=== PATIENT | female | born 1955 | race Caucasian/White ===

== ENCOUNTER 2020-05-30 08:51 | Emergency (ER) | payer MEDICARE, SELFPAY ==
[2020-05-30] VITALS (36 sets, daily range): BP systolic 120–158; BP diastolic 65–108; PULSE 60–74; RESP 13–21; TEMP 35.7; O2SAT 94–100
--- NOTE | ~2020-05-30 | XR_ITS ---
EXAMINATION: XR shoulder RT min 2V EXAM DATE: 05/30/2020 10:14 INDICATION: Initial encounter following injury, with pain of the right shoulder. TECHNIQUE: The following right shoulder projections obtained: frontal projection with internal rotati on, frontal projection with external rotation, Grashey, and scapular Y view (4+ views). Comparison is made to prior examination from 02/01/2016. FINDINGS: No evidence of right shoulder rotator cuff calcific tendinosis. Unremarkable right gretchen ohumeral and acromioclavicular joints. Mild right shoulder osteoarthritis. There are no acute fractur es or dislocations identified. There is no subcutaneous gas. The soft tissue is unremarkable. The re are no radiopaque foreign bodies. IMPRESSION: 1. Right shoulder exam without acute osseous findings. Reviewed, dictated and finalized at location A. ERCIAL TIRE SERVICE TECHNICIAN
--- NOTE | ~2020-05-30 | CT_ITS ---
EXAMINATION: CT brain wo con DATE: 05/30/2020 09:49 INDICATION: Dizziness. TECHNIQUE: Computed tomography (CT) of the head was performed without intravenous contrast. The mA wa s adjusted according to patient size. Iterative reconstruction technique was employed. The dose-lengt h product was 605.33 mGy-cm. COMPARISON: Head CT 08/22/18 FINDINGS: There is no intracranial hemorrhage, acute infarction, or abnormal intracranial mass lesion . The ventricles are normal in size. There is mild mucosal thickening in the ethmoid sinuses. The mas toid air cells are normal. IMPRESSION: 1. Normal brain. Reviewed, dictated and finalized at location B. RAL GAS PLANT SUPERVISOR IMPRESSION: 1. Normal brain.
--- NOTE | ~2020-05-30 | CT_ITS ---
EXAMINATION: CT cervical spine wo con DATE: 05/30/2020 09:49 INDICATION: Neck injury. TECHNIQUE: Computed tomography (CT) of the cervical spine was performed without intravenous contrast. Automated exposure control and iterative reconstruction technique were employed. The dose-length pro duct was 493.57 mGy-cm. COMPARISON: CT cervical spine 07/14/2013 FINDINGS: There is 2 mm anterolisthesis of C2 on C3 and C3 on C4. Vertebral body heights are normal. There is moderately decreased disc height at C3-C4 and severely decreased disc height from C4-C5 thro ugh C6-C7. The following disc levels are specifically discussed: C2-C3: There is mild bilateral uncovertebral joint osteoarthritis. There is severe right and moderate left facet joint osteoarthritis. There is mild right neural foraminal stenosis. There is no central canal stenosis. C3-C4: There is mild right and severe left uncovertebral joint osteoarthritis. There is severe bilate ral facet joint osteoarthritis. There is moderate bilateral neural foraminal stenosis. There is mild central canal stenosis. C4-C5: There is severe bilateral uncovertebral joint osteoarthritis. There is severe bilateral facet joint osteoarthritis. There is severe right and moderate left neural foraminal stenosis. There is mil d central canal stenosis. C5-C6: There is severe bilateral uncovertebral joint osteoarthritis. There is moderate bilateral face t joint osteoarthritis. There is moderate bilateral neural foraminal stenosis. There is mild central canal stenosis. C6-C7: There is severe bilateral uncovertebral joint osteoarthritis. There is moderate right and mild left facet joint osteoarthritis. There is mild bilateral neural foraminal stenosis. There is mild ce ntral canal stenosis. C7-T1: There is no uncovertebral joint osteoarthritis. There is severe bilateral facet joint osteoart hritis. There is mild bilateral neural foraminal stenosis. There is no central canal stenosis. IMPRESSION: 1. No fracture. 2. Severe cervical spondylosis. Reviewed, dictated and finalized at location B. FLIGHT ATTENDANT
--- NOTE | ~2020-05-30 | CT_ITS ---
EXAMINATION: CT lumbar spine wo con DATE: 05/30/2020 09:49 INDICATION: Low back injury. TECHNIQUE: Computed tomography (CT) of the lumbar spine was performed without intravenous contrast. A utomated exposure control and iterative reconstruction technique were employed. The dose-length produ ct was 1248.20 mGy-cm. COMPARISON: None FINDINGS: There is 21 degrees dextroscoliosis of lumbar spine. There are chronic bilateral L5 pars de fects. There is 8 mm anterolisthesis of L5 on S1. There is mild chronic height loss of L5 vertebral b oneyda posteriorly. There is mild chronic anterior wedging of T12 vertebral body. There is severely decr eased disc height from L1-L2 through L5-S1. The following disc levels are specifically discussed: L1-L2: The disc is bulging. There is severe bilateral facet joint osteoarthritis. There is moderate b ilateral neural foraminal stenosis. There is mild central canal stenosis. L2-L3: The disc is bulging. There is severe bilateral facet joint osteoarthritis. There is moderate b ilateral neural foraminal stenosis. There is mild central canal stenosis. L3-L4: The disc is bulging. There is severe bilateral facet joint osteoarthritis. There is moderate b ilateral neural foraminal stenosis. There is mild central canal stenosis. L4-L5: The disc is bulging. There is severe bilateral facet joint osteoarthritis. There is moderate b ilateral neural foraminal stenosis. There is mild central canal stenosis. L5-S1: The disc is bulging. There is severe bilateral facet joint osteoarthritis. There is mild bilat eral neural foraminal stenosis. There is no central canal stenosis. IMPRESSION: 1. No acute fracture. 2. Severe lumbar spondylosis. 3. Chronic bilateral L5 pars defects with grade 1 anterolisthesis of L5 on S1. 4. Lumbar dextroscoliosis. Reviewed, dictated and finalized at location B. ATE CLIENT ADVISOR
--- NOTE | ~2020-05-30 | XR_ITS ---
EXAMINATION: XR chest 2V EXAM DATE: 05/30/2020 10:14 INDICATION: Fall, dizziness, syncope. Asthma. Colon cancer. TECHNIQUE: Frontal and lateral projections of the chest obtained and reviewed. Comparison is made to prior examination from 01/19/2018. FINDINGS: There is a dual lead pacemaker/AICD seen with leads projecting over the expected locations of the right atrial appendage and right ventricle. No confluent consolidation, pneumothorax or pleu ral effusion suspected. Cardiomediastinal silhouette is normal. There are mild bony degenerative head ges. IMPRESSION: No acute cardiopulmonary findings. Reviewed, dictated and finalized at location A. ICATIONS PROCESSOR
--- NOTE | ~2020-05-30 | XR_ITS ---
EXAMINATION: XR shoulder LT min 2V EXAM DATE: 05/30/2020 10:14 INDICATION: Initial encounter following injury, with pain of the left shoulder. TECHNIQUE: The following left shoulder projections obtained: frontal projection with internal rotatio n, frontal projection with external rotation, Grashey, and scapular Y view (4+ views). There is no p rior study for comparison. FINDINGS: No evidence of left shoulder rotator cuff calcific tendinosis. Proximal humeral metaphy sis enchondroma, benign finding. There are no acute fractures or dislocations identified. There is n o subcutaneous gas. The soft tissue is unremarkable. There are no radiopaque foreign bodies. Ther e is mild glenohumeral and acromioclavicular joint primary osteoarthritis. IMPRESSION: 1. Left shoulder exam without acute osseous findings. Reviewed, dictated and finalized at location A. EL TRUCK MECHANIC
--- NOTE | 2020-05-30 09:01 | ECG_ITS ---
Measurements Intervals [place] Rate: 61 P: -10 RI: 240 QRS: 6 QRSD: 109 T: -9 QT: 418 QTc: 423 Interpretive Statements ELECTRONIC ATRIAL PACEMAKER BORDERLINE ST-T WAVE ABNORMALITY- ANT/INF LEADS BASELINE ARTIFACT- I, II, III, AVR, AVL, AVF, V1-V6 BORDERLINE ECG Electronically Signed On 05-30-2020 14:39:07 COAT BASTER by Arden Palomares D.O.
--- NOTE | 2020-05-30 09:18 | PC.NURSE ---
pt pacemaker, interrogated by [employer] interrogator at this time.
[2020-05-30 09:28] LABS: Basophils Percent Auto 0.3 % (0.2-1.2); Eosinophils Percent Auto 0.1 % (0-4.4); Hematocrit 43.5 % (37.0-47.0); Hemoglobin 14.8 g/dL (12.0-15.0); Immature Granulocyte Absolute 0.06 K/mm3 (0.00-0.031); Immature Granulocyte Percent A 0.4 % (0-0.5); Lymphocytes Absolute Auto 0.87 K/mm3 (0.9-3.2); Lymphocytes Percent Auto 6.5 % (18.3-44.2); Mean Corpuscular Hemoglobin 29.5 pg (26-34); Mean Corpuscular Volume 86.7 fl (80-100); Mean Platelet Volume 9.4 fl (7.4-10.4); Monocytes Percent Auto 7.1 % (2.6-8.5); Neutrophils Absolute Auto 11.5 K/mm3 (1.3-6.7); Neutrophils Percent Auto 85.6 % (45.5-73.1); Platelet Count Result 222 k/mm3 (150-375); Red Blood Count 5.02 M/mm3 (4.2-5.4); Red Cell Distribution Width 13.1 % (11.5-14.5); White Blood Count 13.5 K/mm3 (4.5-10.0)
--- NOTE | 2020-05-30 09:30 | PC.NURSE ---
CT BRAIN PLACE ON PT, PA MARILIA AWARE.
--- NOTE | 2020-05-30 09:31 | PC.NURSE ---
pt to ct
[2020-05-30 09:39] LABS: Anion Gap 7 mmol/L (8-16); Blood Urea Nitrogen 15 mg/dL (7-17); Calcium 10.4 mg/dL (8.4-10.2); Carbon Dioxide 32 mmol/L (22-30); Chloride 90 mmol/L (98-107); Estimated CRCL calculation 116 ml/min; Estimated Glomerular Filt Rate > 60; Glucose 116 mg/dL (65-105); Potassium 3.1 mmol/L (3.4-5.0); Sodium 129 mmol/L (137-145)
[2020-05-30 09:48] LABS: Add Urine Microscopic? NO; Appearance Urine Clear (Clear); Bilirubin Urine Negative (Negative); Blood Urine Negative (Negative); Color Urine Yellow (Yellow); Glucose Urine UA Negative (Negative); Ketones Urine Negative (Negative); Leukocyte Esterase Ur Negative LEU/UL (Negative); Nitrate Urine Negative (Negative); Protein Urine Negative (Negative); Specific Grav Ur 1.015 (1.001-1.035); Urobilinogen Urine Negative mg/dL (<2.0)
[2020-05-30 10:24] LABS: Prothrombin Time 13.7 Seconds (11.1-14.7)
[2020-05-30] MEDS: SODIUM CHLORIDE 0.9% IV 1,000 ML 999 ML IV CONT ×2 (10:31→12:49)
--- NOTE | 2020-05-30 10:36 | ED.HEATRA ---
HPI - Head Injury General Chief complaint: Head Injury Stated complaint: FALL Time Seen by Provider: 05/30/20 09:05 Source: patient and family Mode of arrival: ambulatory Limitations: no limitations History of Present Illness HPI Narrative: Patient is a 65-year-old female who presents to emergency department for evaluation of injuries related to falling last night woke up in the middle of the night attempted to go upstairs to get into bed patient notes that she laid on the ground most of the night., Patient notes today she has had headache and neck pain and low back pain from the fall as well as left shoulder pain patient notes feeling weak and fatigued notes that she had felt fine yesterday and denies any acute or recent illness presents in no distress has not taken anything for her symptoms Related Data Home Medications Medication Instructions Recorded Confirmed Albuterol Inhaler 07/28/19 Zyrtec 07/28/19 aspirin 07/28/19 celecoxib [Celebrex] 200 mg PO BID 07/28/19 07/28/19 chlorthalidone 25 mg PO DAILY 07/28/19 07/28/19 fluticasone propionate [Flonase 2 spray INTRANASAL DAILY 07/28/19 07/28/19 Allergy Relief] gabapentin 1,200 mg PO TID 07/28/19 07/28/19 lovastatin 20 mg PO DAILY 07/28/19 07/28/19 mometasone [Asmanex HFA] INHALATION 07/28/19 potassium chloride 10 meq PO DAILY 07/28/19 07/28/19 ammonium lactate 1 applic TOPICAL BID 05/30/20 psyllium [Metamucil] 1 packet PO TID 05/30/20 Allergies Allergy/AdvReac Type Severity Reaction Status Date / Time adhesive Allergy Unknown Rash Verified 07/28/19 18:02 latex Allergy Unknown Rash Verified 07/28/19 18:02 morphine Allergy Unknown Nausea and Verified 07/28/19 18:02 Vomiting nickel Allergy Unknown Rash Verified 07/28/19 18:02 VINYL STRIPS Allergy Unknown RASH Uncoded 03/03/17 10:18 Review of Systems Review of Systems: All systems reviewed & are unremarkable except as noted in HPI and below PMFSH Past Medical History Medical History Asthma Bronchitis Colon cancer History of sinus problem Hyperlipidemia Neuropathy Osteoarthritis Pacemaker Pneumonia Surgical History Surgical History H/O: hysterectomy History of appendectomy History of cholecystectomy History of colon resection History of hip replacement, total History of placement of ear tubes History of tonsillectomy Family History Family History Mother Carcinoma of colon Family history of pancreatic disease Father Family history of malignant melanoma Family history of pancreatic disease Sibling Acute myocardial infarction Social History Social History Smoking status: Never smoker Alcohol intake: never Gender identity (if verbalized by the patient): Female Exam Narrative: Exam Narrative: GENERAL: Well-appearing, morbid obesity, and in no acute distress. HEAD: Normocephalic, atraumatic. EYES: PERRLA and EOMI. ENT: Nares clear, no rhinorrhea or epistaxis. Mucous membranes moist. NECK: Supple. No adenopathy or masses. CHEST: Clear to auscultation. No respiratory distress. No wheezes rales or rhonchi HEART: Regular rate and rhythm. No murmur heard. Normal peripheral pulses. ABDOMEN: Soft, nontender, nondistended EXTREMITIES: Normal range of motion. 1+ edema lower extremity. Midline cervical and lumbar tenderness no thoracic tenderness no bruising or deformities noted. Bruising and tenderness of the left proximal humerus at the level of the deltoid SKIN: Warm, dry, no rash. NEURO: No focal deficits. Alert and oriented x3. Cranial nerves II through XII grossly intact. Normal speech. Motor and sensory intact and symmetrical in the extremities PSYCH: Normal mood and affect. Course Course Emergency Course: Patient in the room at this time aware of
[2020-05-30 10:59] LABS: Creatine Kinase 233 U/L (30-135)
[2020-05-30 11:02] LABS: Troponin I < 0.012 ng/mL (0.000-0.034)
[2020-05-30 11:07] LABS: Alanine Aminotransferase 35 U/L (4-35); Albumin Level 4.4 g/dL (3.5-5.1); Alkaline Phosphatase 146 U/L (38-126); Aspartate Amino Transferase 65 U/L (14-36); Lipase 37 U/L (23-300)
--- NOTE | 2020-05-30 11:20 | PC.NURSE ---
called lab, added on MG 1120
[2020-05-30 11:34] LABS: Magnesium 1.9 mg/dL (1.6-2.3)
[2020-05-30] MEDS: POTASSIUM CHLORIDE 20 MEQ TABLET 40 MEQ PO (12:49)
--- NOTE | 2020-05-30 13:41 | PC.NURSE ---
AWAITING NORMAL SALINE BOLUS TO FINISH ON PT PRIOR TO D/C.
--- NOTE | 2020-05-30 15:16 | PC.NURSE ---
pt still finished her iv fluids, to be d/c after they infuse.
== END 2020-05-30 16:05 | disposition home or self-care (01) ==
PROVIDERS: Emergency Medicine Emergency Medical Services; Emergency Provider Emergency Medicine; PCP Family Medicine Adolescent Medicine
DX: S09.90XA Unspecified injury of head, initial encounter (principal); S16.1XXA Strain of muscle, fascia and tendon at neck level, initial encounter; S39.012A Strain of muscle, fascia and tendon of lower back, initial encounter; E87.6 Hypokalemia; S40.012A Contusion of left shoulder, initial encounter; J45.909 Unspecified asthma, uncomplicated; Z85.038 Personal history of other malignant neoplasm of large intestine; E78.5 Hyperlipidemia, unspecified; G62.9 Polyneuropathy, unspecified; M19.90 Unspecified osteoarthritis, unspecified site; Z95.0 Presence of cardiac pacemaker; Z90.49 Acquired absence of other specified parts of digestive tract; Z96.649 Presence of unspecified artificial hip joint; Z79.82 Long term (current) use of aspirin; M47.812 Spondylosis without myelopathy or radiculopathy, cervical region; M47.816 Spondylosis without myelopathy or radiculopathy, lumbar region; R94.31 Abnormal electrocardiogram [ECG] [EKG]; W10.9XXA Fall (on) (from) unspecified stairs and steps, initial encounter
CPT/HCPCS: 36415; 70450; 71046; 72125; 72131; 73030; 80048; 80076; 81003; 82550; 83605; 83690; 83735; 84484; 85025; 85610; 85730; 93005; 96361; 96365; 99284; A9270; J0131; J7030

== ENCOUNTER 2021-10-10 15:00 | Emergency (ER) | payer MEDICARE, SELFPAY ==
[2021-10-10 15:13] VITALS: BP 134/88; PULSE 87; RESP 16; TEMP 36.6; O2SAT 99
--- NOTE | 2021-10-10 15:46 | ED.EAR ---
HPI - Ear Problem General Chief complaint: Ear Stated complaint: Ear pain Time Seen by Provider: 10/10/21 15:35 Source: patient, family, RN notes reviewed and old records reviewed Mode of arrival: ambulatory Limitations: no limitations History of Present Illness HPI Narrative: 66 year old female accompanied by spouse presents to express care with complaints of bilateral ear problems since last night with muffled hearing. Patient reports that she had right ear pain and muffled hearing to her right ear last night with pain gone to right ear but muffled hearing continues. She has pain to her left ear with some bloody drainage noted with ear canal red and excoriated. Patient also has yellowish drainage noted at TM of left ear with decreased hearing.Patient states that she has some nasal drainage and uses Flonase daily and usually has to take sinus medication with weather changes this time of year. Patient denies any cough or any chest congestion or any expectoration of mucous. MD Complaint: ear pain, ear discharge and decreased hearing Location: bilateral Duration: constant Relieving factors: nothing and ear drops (right ear) Discharge from ear: Reports yes - bloody Associated symptoms ear: decreased hearing, external ear tenderness, ear swelling and rhinorrhea Treatment prior to arrival: eardrops Related Data Home Medications Medication Instructions Recorded Confirmed Zyrtec 10 mg DIRECTED 07/28/19 10/10/21 aspirin 81 mg DIRECTED 07/28/19 10/10/21 celecoxib [Celebrex] 200 mg PO BID 07/28/19 10/10/21 chlorthalidone 25 mg PO DAILY 07/28/19 10/10/21 fluticasone propionate [Flonase 2 spray INTRANASAL DAILY 07/28/19 10/10/21 Allergy Relief] gabapentin 1,200 mg PO TID 07/28/19 10/10/21 ammonium lactate 1 applic TOPICAL BID 05/30/20 10/10/21 artifi.tears(hypromellose)(PF) 0.3 1 drp EACH EYE BID PRN 10/28/20 10/10/21 % eye drops atorvastatin 20 mg tablet 20 mg PO DAILY 10/28/20 10/10/21 ondansetron HCl 8 mg tablet 8 mg PO Q12H 10/28/20 10/10/21 psyllium seed (sugar) oral powder 1 tbsp PO DAILY 10/28/20 10/10/21 tavaborole 5 % topical solution 1 applic TOPICAL DAILY 10/28/20 10/10/21 with applicator fluticasone propionate [Flovent 110 mcg INHALATION DIRECTED 10/10/21 10/10/21 HFA] oxybutynin chloride 10 mg PO DIRECTED 10/10/21 10/10/21 Allergies Allergy/AdvReac Type Severity Reaction Status Date / Time adhesive Allergy Unknown Rash Verified 11/18/20 11:13 latex Allergy Unknown Rash Verified 11/18/20 11:13 morphine Allergy Unknown Nausea and Verified 11/18/20 11:13 Vomiting nickel Allergy Unknown Rash Verified 11/18/20 11:13 VINYL STRIPS Allergy Unknown RASH Uncoded 10/28/20 11:05 Review of Systems Review of Systems: CONSTITUTIONAL: Denies fever, chills, or sweats. EYES: Denies visual changes, redness, or discharge. ENT: Positive rhinorrhea, congestion, no sore throat, bilateral otalgia with decreased hearing and bloody drainage from left ear CARDIOVASCULAR: Denies chest pain, palpitations, or edema. RESPIRATORY: Denies cough or dyspnea. GASTROINTESTINAL: Denies abdominal pain, nausea, vomiting, or diarrhea. GENITOURINARY: Denies dysuria or hematuria. SKIN: Denies rash or itching. MUSCULOSKELETAL: Denies back pain, joint pain, or myalgia. NEUROLOGIC: Denies headache, numbness, or weakness. PSYCHIATRIC: Denies anxiety or depression. All systems reviewed & are unremarkable except as noted in HPI and below PMFSH Past Medical History Medical History Abnormal colonoscopy 08/09 Repeat 08/10 Asthma Bronchitis Colon cancer History of sinus problem Hyperlipidemia Neuropathy Osteoarthritis Pacemaker Pneumonia Surgical History Surgical History H/O: hysterectomy History of appendectomy History of cholecystectomy History of colon resection History of hip replacement, total History of placement of ear tub
== END 2021-10-10 16:01 | disposition home or self-care (01) ==
PROVIDERS: Emergency Provider Registered Nurse; PCP Family Medicine Adolescent Medicine
DX: H60.90 Unspecified otitis externa, unspecified ear (principal); H66.002 Acute suppurative otitis media without spontaneous rupture of ear drum, left ear; Z87.891 Personal history of nicotine dependence; J45.909 Unspecified asthma, uncomplicated; E78.5 Hyperlipidemia, unspecified; M19.90 Unspecified osteoarthritis, unspecified site; Z95.0 Presence of cardiac pacemaker; Z85.038 Personal history of other malignant neoplasm of large intestine; Z96.649 Presence of unspecified artificial hip joint; Z79.82 Long term (current) use of aspirin
CPT/HCPCS: 99213; G0463

== ENCOUNTER 2022-01-26 20:22 | Emergency (ER) | payer MEDICARE, SELFPAY ==
[2022-01-26] VITALS (28 sets, daily range): BP systolic 114–188; BP diastolic 48–105; PULSE 60–84; RESP 8–22; TEMP 36.6; O2SAT 94–100
--- NOTE | ~2022-01-26 | CT_ITS ---
EXAMINATION: CT BRAIN W/O DATE: 01/26/2022 21:44 INDICATION: Headache TECHNIQUE: Computed tomography (CT) of the head was performed without intravenous contrast. The dose- length product was 605.33 mGy-cm. Automated exposure control and iterative reconstruction technique w ere employed. COMPARISON: 05/30/2020. FINDINGS: Normal brain parenchymal volume for age. Normal larsen-white differentiation. No acute intrac ranial hemorrhage, infarction, mass or mass effect. No ventriculomegaly or midline shift. Midline sagittal images demonstrate a normal corpus callosum, c raniovertebral junction and sella turcica. Basilar cisterns are patent. Paranasal sinuses and mastoids are pneumatized. No depressed skull fractures. IMPRESSION: 1. No acute intracranial abnormality. Reviewed, dictated and finalized at location A.
--- NOTE | ~2022-01-26 | XR_ITS ---
EXAMINATION: XR humerus LT DATE: 01/27/2022 00:01 INDICATION: Left humerus fracture status post reduction. TECHNIQUE: 2 views of left humerus were obtained. COMPARISON: Left humerus radiographs and at 8 PM, chest two views 09/17/11 FINDINGS: There is a comminuted fracture of distal humeral diaphysis. The main distal fracture fragme nt demonstrates variable posterior displacement measuring up to one shaft width and variable posterio r angulation measuring up to 10 degrees. There is a chronic sclerotic lesion in a pattern of chondroi d matrix in surgical neck of proximal left humerus, which may be an enchondroma or osteonecrosis. The re is normal alignment at the glenohumeral joint and elbow joint. IMPRESSION: 1. Comminuted fracture of distal humeral diaphysis with improvement in alignment. Reviewed, dictated and finalized at location A. IMPRESSION: 1. Comminuted fracture of distal humeral diaphysis with improvement in alignmen t.
--- NOTE | ~2022-01-26 | XR_ITS ---
XR chest 1V 01/26/2022 21:35 Indication: Preop Procedure: AP view of the chest Comparison: Comparison to multiple prior studies sequentially, with oldest reviewed study dated 06/19. Findings: There are pacemaker leads in the right atrium and right ventricle respectively. Cardiomegal y. No focal air space disease, pulmonary edema, pleural effusion or suspected pneumothorax. No acute osseous abnormality. Impression: 1: No acute cardiopulmonary disease. Reviewed, dictated and finalized at location A. Impression: 1: No acute cardiopulmonary disease.
--- NOTE | ~2022-01-26 | XR_ITS ---
XR hip BI 2V w AP pelvis 01/26/2022 21:32 Indication: Bilateral hip pain Procedure: 3 views of each hip Comparison: No prior studies for comparison. Findings: There are bilateral total hip arthroplasties. No fracture or traumatic malalignment. There is lower lumbar spondylosis with dextroscoliosis of the lumbar spine. Sacral foramen are symmetric. N o acute fracture or traumatic malalignment. Impression: 1: No acute fracture. Reviewed, dictated and finalized at location A. Impression: 1: No acute fracture.
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
--- NOTE | ~2022-01-26 | CT_ITS ---
EXAMINATION: CT cervical spine wo con DATE: 01/26/2022 21:53 INDICATION: Neck pain after fall. TECHNIQUE: Computed tomography (CT) of the cervical spine was performed without intravenous contrast. The dose-length product was 522 mGy-cm. Automated exposure control and iterative reconstruction tech nique were employed. COMPARISON: None FINDINGS: Craniovertebral junction is normal. Odontoid process within normal limits. There is degener ative anterolisthesis at C2-3 and C3-4 with retrolisthesis at C4-5. No evidence for perched facet. Th ere is multilevel uncinate and facet hypertrophy. Lung apices are unremarkable. No acute fracture, cedillo bluxation or dislocation. No significant paraspinal soft tissue abnormality. There is carotid atheros clerosis. There is a 1.7 cm low-density lesion of the right thyroid lobe. Recommend correlation with ultrasound. IMPRESSION: 1. No acute fracture. 2: Severe cervical spondylosis. Reviewed, dictated and finalized at location A.
--- NOTE | ~2022-01-26 | XR_ITS ---
XR humerus LT 01/26/2022 20:59 Indication: Left arm pain after fall Procedure: 2 views left humerus Comparison: 05/30/2020 Findings: There is a stable sclerotic lesion proximal aspect of the humerus, consistent with enchondr sabrina. There is an acute comminuted distal diaphyseal fracture of the humerus with overriding of fractu re fragments and varus angulation. Osteopenia. No other fracture identified. No foreign bodies. Impression: 1: Acute comminuted distal left humeral diaphyseal fracture with overriding of fracture fragments in varus angulation. Reviewed, dictated and finalized at location A. Impression: 1: Acute comminuted distal left humeral diaphyseal fracture with overriding of fracture fragments in varus angulation.
--- NOTE | 2022-01-26 20:51 | PC.NURSE ---
To xray via stretcher.
[2022-01-26] MEDS: fentaNYL CITRATE INJ (*CRX) 100 MCG/2 ML VIAL 50 MCG IV PUSH (22:08)
--- NOTE | 2022-01-26 22:11 | ED.UPPEXIN ---
HPI - Extremity Injury (Upper) General Chief Complaint: Extremity Injury, Upper <Jessi Malik PA-C - Last Filed: 01/27/22 01:26> Stated Complaint: LUE PAIN/DEFORMITY S/P FALL <Jessi Malik PA-C - Last Filed: 01/27/22 01:26> Time Seen by Provider: 01/26/22 21:00 <SWAPNIL Tipton Last Filed: 01/27/22 01:26> Source: patient <SWAPNIL Tipton Last Filed: 01/27/22 01:26> Mode of arrival: EMS <SWAPNIL Tipton Last Filed: 01/27/22 01:26> Limitations: no limitations <SWAPNIL Tipton Last Filed: 01/27/22 01:26> History of Present Illness HPI narrative: This is a 66-year-old female that presents to the emergency department for left arm pain after an injury today. Reports she tripped and fell onto her left arm. She does think that she hit her head, she did not lose consciousness. Reports left arm swelling and pain. Also reports neck and back pain. As well as some hip pain. Denies prodromal symptoms, vision changes, vomiting, numbness, or weakness. <Jessi Malik PA-C - Last Filed: 01/27/22 01:26> Related Data Home Medications: Home Medications Medication Instructions Recorded Confirmed Zyrtec 10 mg DIRECTED 07/28/19 10/20/21 aspirin 81 mg tablet,delayed 81 mg DIRECTED 07/28/19 10/20/21 release celecoxib 200 mg capsule (Celebrex) 200 mg PO BID 07/28/19 10/20/21 chlorthalidone 25 mg tablet 25 mg PO DAILY 07/28/19 10/20/21 fluticasone propionate 50 2 spray intranasal DAILY 07/28/19 10/20/21 mcg/actuation nasal spray,suspension (Flonase Allergy Relief) gabapentin 600 mg tablet 1,200 mg PO TID 07/28/19 10/20/21 ammonium lactate 12 % topical cream 1 applic topical BID 05/30/20 10/20/21 atorvastatin 20 mg tablet 20 mg PO DAILY 10/28/20 10/20/21 ondansetron HCl 8 mg tablet 8 mg PO Q12H 10/28/20 10/20/21 psyllium seed (sugar) oral powder 1 tbsp PO DAILY 10/28/20 10/20/21 (Metamucil (sugar) oral powder) tavaborole 5 % topical solution 1 applic topical DAILY 10/28/20 10/20/21 with applicator (Kerydin) fluticasone propionate 110 110 mcg inhalation DIRECTED 10/10/21 10/20/21 mcg/actuation HFA aerosol inhaler (Flovent HFA) oxybutynin chloride 10 mg 10 mg PO DIRECTED 10/10/21 10/20/21 tablet,extended release 24 hr [id number] 650 cap PO 10/20/21 10/20/21 [id number] prim oil 150 mg-bilb 20 mg capsule (Retaine OM3) <Jessi Malik PA-C - Last Filed: 01/27/22 01:26> Allergies/Adverse Reactions: Allergies Allergy/AdvReac Type Severity Reaction Status Date / Time adhesive Allergy Unknown Rash Verified 01/26/22 23:25 latex Allergy Unknown Rash Verified 01/26/22 23:25 morphine Allergy Unknown Nausea and Verified 01/26/22 23:25 Vomiting nickel Allergy Unknown Rash Verified 01/26/22 23:25 VINYL STRIPS Allergy Unknown RASH Uncoded 01/26/22 23:25 <Jessi Malik PA-C - Last Filed: 01/27/22 01:26> Review of Systems Review of Systems: CONSTITUTIONAL: Denies fever EYES: Denies visual changes CARDIOVASCULAR: Denies chest pain GASTROINTESTINAL: Denies vomiting MUSCULOSKELETAL: Reports back pain, joint pain, and myalgia. NEUROLOGIC: Denies numbness, or weakness. <Jessi Malik PA-C - Last Filed: 01/27/22 01:26> All systems reviewed & are unremarkable except as noted in HPI and below <Jessi Malik PA-C - Last Filed: 01/27/22 01:26> [facility] Past Medical History Medical History: Medical History (Updated 01/27/22 @ 00:02 by Jessi Malik PA-C) Abnormal colonoscopy 08/09 Repeat 08/10 Asthma Bronchitis Colon cancer History of sinus problem Hyperlipidemia Neuropathy Osteoarthritis Pacemaker Pneumonia <Jessi Malik PA-C - Last Filed: 01/27/22 01:26> Surgical History Surgical History: Surgical History (Updated 10/20/21 @ 14:14 by Brandi Gutierrez [facility]) H/O cataract extraction H/O: hysterectomy History of appendectomy History of cholecystectomy Histo
--- NOTE | 2022-01-26 23:14 | PC.NURSE ---
Preparing to place splint, pt unable to tolerate due to pain. Order received for diazepam and then ordered cancelled due to pt condition. Planning to do moderate sedation to place splint.
[2022-01-26] MEDS: KETAMINE HCL (*CRX) 500 MG/10 ML VIAL 120 MG IV PUSH (23:35)
--- NOTE | 2022-01-26 23:40 | PC.NURSE ---
Posterior splint applied after traction/manipulation of fracture per Dr. Weathers. Pt has warm, pink nailbeds that william well. Pt remains unarousable to calling.
--- NOTE | 2022-01-26 23:49 | PC.NURSE ---
Splint and sling applied. Pt opens eyes to name. Good cap refill to left hand post splint. Pt opens eyes to name but is nonverbal (nods head yes and no). Radiology at bedside for post reduction film.
[2022-01-27] VITALS (13 sets, daily range): BP systolic 125–163; BP diastolic 55–130; PULSE 60–67; RESP 10–16; TEMP 36.6; O2SAT 89–100
--- NOTE | 2022-01-27 00:40 | PC.NURSE ---
Pt given bedpan to void. Continue to await EMS to transport to [facility].
[2022-01-27] MEDS: fentaNYL CITRATE INJ (*CRX) 100 MCG/2 ML VIAL 50 MCG IV PUSH (01:00)
--- NOTE | 2022-01-27 01:36 | PC.NURSE ---
[facility] contacted for transfer at 2255. The initial eta was midnight, then updated to 0030, then they arrived at 0120 to take patient to [facility]. [employer]
== END 2022-01-27 01:33 | disposition short-term general hospital (02) ==
PROVIDERS: Emergency Provider Emergency Medicine; PCP Family Medicine Adolescent Medicine
DX: S49.192A Other physeal fracture of lower end of humerus, left arm, initial encounter for closed fracture (principal); J45.909 Unspecified asthma, uncomplicated; Z85.038 Personal history of other malignant neoplasm of large intestine; E78.5 Hyperlipidemia, unspecified; G62.9 Polyneuropathy, unspecified; M19.90 Unspecified osteoarthritis, unspecified site; Z95.0 Presence of cardiac pacemaker; Z96.649 Presence of unspecified artificial hip joint; Z98.49 Cataract extraction status, unspecified eye; Z90.49 Acquired absence of other specified parts of digestive tract; Z87.01 Personal history of pneumonia (recurrent); Z87.891 Personal history of nicotine dependence; M47.16 Other spondylosis with myelopathy, lumbar region; M47.812 Spondylosis without myelopathy or radiculopathy, cervical region; M47.814 Spondylosis without myelopathy or radiculopathy, thoracic region; R91.8 Other nonspecific abnormal finding of lung field; I51.7 Cardiomegaly; W01.0XXA Fall on same level from slipping, tripping and stumbling without subsequent striking against object, initial encounter
CPT/HCPCS: 23605; 23650; 24999; 70450; 71045; 72125; 72128; 72131; 73060; 73521; 96365; 96375; 99285; A4565; J0131; J3010; J3360

== ENCOUNTER 2022-08-23 15:22 | Emergency (ER) | payer MEDICARE, SELFPAY ==
[2022-08-23 15:34] VITALS: BP 129/66; PULSE 79; RESP 16; TEMP 37.3; O2SAT 99
--- NOTE | 2022-08-23 16:41 | ED.URI ---
HPI - URI/Sore Throat General Chief Complaint: Upper Respiratory Infection Stated Complaint: cough,asya,drainage Time Seen by Provider: 08/23/22 16:30 Source: patient, RN notes reviewed and old records reviewed Mode of arrival: ambulatory Limitations: no limitations History of Present Illness HPI Narrative: 67 year old female accompanied by spouse presents to express care with complaints of ear pain to right ear for 2-3 days earlier in the week and used ofloxacin ear drops and pain stopped then for past 3-4 days she has developed a cough and runny nose which has increased in symptoms. Patient reports that initially nasal drainage was clear and now it is green and her cough is loose. She states that she has been taking Mucinex DM for her cough and runny nose, Patient reports no known acute fevers or any shortness of breath, has some pressure to her ears with some low ringing sounds. MD elicited complaint: cough, rhinorrhea, nasal congestion and other (ear pain right ear earlier in week) Treatments prior to arrival: cold medicine Related Data Home Medications Medication Instructions Recorded Confirmed tavaborole 5 % topical solution 1 applic topical DAILY 10/28/20 03/04/22 with applicator (Kerydin) Allergies Allergy/AdvReac Type Severity Reaction Status Date / Time adhesive Allergy Unknown Rash Verified 08/23/22 15:36 latex Allergy Unknown Rash Verified 08/23/22 15:36 morphine Allergy Unknown Nausea and Verified 08/23/22 15:36 Vomiting nickel Allergy Unknown Rash Verified 08/23/22 15:36 VINYL STRIPS Allergy Unknown RASH Uncoded 08/23/22 15:36 Review of Systems Review of Systems: CONSTITUTIONAL: Denies malaise, chills, sweats, or fever. EYES: Denies visual changes, redness, or discharge. ENT: Reports rhinorrhea, congestion, sinus pain, otalgia scratchy sore throat. CARDIOVASCULAR: Denies chest pain, palpitations, or edema. RESPIRATORY: Reports cough.? Denies dyspnea. GASTROINTESTINAL: Denies abdominal pain, nausea, vomiting, diarrhea SKIN: Denies rash or itching. MUSCULOSKELETAL: Denies myalgia. NEUROLOGIC: Denies headache. All systems reviewed & are unremarkable except as noted in HPI and below PMFSH Past Medical History Medical History Abnormal colonoscopy 08/09 Repeat 08/10 Asthma Colon cancer History of sinus problem Hyperlipidemia Neuropathy Osteoarthritis Pacemaker (2017) Pneumonia Surgical History Surgical History H/O cataract extraction H/O: hysterectomy (1987) History of appendectomy History of cholecystectomy History of colon resection History of hip replacement, total (2016) Bilateral History of placement of ear tubes History of tonsillectomy (1964) Family History Family History Mother Carcinoma of colon Family history of pancreatic disease Uterine cancer Father Family history of pancreatic disease Hypertension Melanoma Sibling Acute myocardial infarction Hypertension Grandparent Asthma Cancer Grandparent Hypertension Carcinoma of colon Social History Social History Smoking status: Former smoker Second hand tobacco smoke exposure: No Alcohol intake: never Substance use: never Substance use type: does not use Living arrangements: with family Occupation/Education: retired Gender identity (if verbalized by the patient): Female Spiritual care concerns: No Comments At time of signature, agree with nursing past medical, surgical, social and family history. There is no relevant family history pertinent to the presenting complaint Exam Narrative: GENERAL: Well-appearing, well-nourished, and in no acute distress. HEAD: Normocephalic EYES: PERRLA, conjunctivae clear ENT: Nares clear, turbinates edematous an
--- NOTE | 2022-08-23 16:41 | ED.URI ---
HPI - URI/Sore Throat General Chief Complaint: Upper Respiratory Infection Stated Complaint: cough,asya,drainage Time Seen by Provider: 08/23/22 16:30 Source: patient, family, RN notes reviewed and old records reviewed Mode of arrival: ambulatory Limitations: no limitations Related Data Home Medications Medication Instructions Recorded Confirmed tavaborole 5 % topical solution 1 applic topical DAILY 10/28/20 03/04/22 with applicator (Kerydin) Allergies Allergy/AdvReac Type Severity Reaction Status Date / Time adhesive Allergy Unknown Rash Verified 08/23/22 15:36 latex Allergy Unknown Rash Verified 08/23/22 15:36 morphine Allergy Unknown Nausea and Verified 08/23/22 15:36 Vomiting nickel Allergy Unknown Rash Verified 08/23/22 15:36 VINYL STRIPS Allergy Unknown RASH Uncoded 08/23/22 15:36 PMF Past Medical History Medical History (Updated 03/04/22 @ 09:55 by Nela Kang MA) Abnormal colonoscopy 08/09 Repeat 08/10 Asthma Colon cancer History of sinus problem Hyperlipidemia Neuropathy Osteoarthritis Pacemaker (2016) Pneumonia Surgical History Surgical History H/O cataract extraction H/O: hysterectomy (1987) History of appendectomy History of cholecystectomy History of colon resection History of hip replacement, total (2016) Bilateral History of placement of ear tubes History of tonsillectomy (1964) Family History Family History Mother Carcinoma of colon Family history of pancreatic disease Uterine cancer Father Family history of pancreatic disease Hypertension Melanoma Sibling Acute myocardial infarction Hypertension Grandparent Asthma Cancer Grandparent Hypertension Carcinoma of colon Social History Social History Smoking status: Former smoker Second hand tobacco smoke exposure: No Alcohol intake: never Substance use: never Substance use type: does not use Living arrangements: with family Occupation/Education: retired Gender identity (if verbalized by the patient): Female Spiritual care concerns: No Course Vital Signs Vital signs: Vital Signs Temperature 37.3 C 08/23/22 15:34 Pulse Rate 79 08/23/22 15:34 Respiratory Rate 16 08/23/22 15:34 Blood Pressure 129/66 08/23/22 15:34 Pulse Oximetry 99 08/23/22 15:34 Temperature 37.3 C 08/23/22 15:34 Pulse Rate 79 08/23/22 15:34 Respiratory Rate 16 08/23/22 15:34 Blood Pressure 129/66 08/23/22 15:34 Pulse Oximetry 99 08/23/22 15:34 Critical Care Time Critical Care Time Critical Care Time: No Discharge Plan Discharge Patient Disposition: Home, Self-Care Condition: Stable Instructions: Antibiotic Form Prescriptions: No Action albuterol sulfate 90 mcg/actuation HFA aerosol inhaler 2 puff INHALATION QID PRN (Reason: shortness of breath or wheezing) Qty: 8.5 0RF Rx Instructions: may use generic tavaborole [Kerydin] 5 % solution with applicator 1 applic topical DAILY atorvastatin 20 mg tablet See Rx Instructions .ROUTE .COMPLEX Qty: 90 2RF Dose Instruction: TAKE 1 TABLET BY MOUTH DAILY (STOP LOVASTATIN) Rx Instructions: TAKE 1 TABLET BY MOUTH DAILY (STOP LOVASTATIN) celecoxib [Celebrex] 200 mg capsule 200 mg PO BID Qty: 180 2RF Follow-up/Referrals: Giacomo Wong MD [Primary Care Provider] - Quality Ankush Coma Scale Eyes: Open Verbal: Oriented and Alert Motor: Follows Commands Ankush Coma Total Score: 15
== END 2022-08-23 16:58 | disposition home or self-care (01) ==
PROVIDERS: Emergency Provider Registered Nurse; PCP Family Medicine Adolescent Medicine
DX: J01.90 Acute sinusitis, unspecified (principal); Z87.891 Personal history of nicotine dependence; J45.909 Unspecified asthma, uncomplicated; M19.90 Unspecified osteoarthritis, unspecified site; Z95.0 Presence of cardiac pacemaker; E78.5 Hyperlipidemia, unspecified; Z96.643 Presence of artificial hip joint, bilateral
CPT/HCPCS: 87081; 87880; 99213; G0463

== ENCOUNTER 2023-06-23 13:12 | Outpatient (CLI) | payer MEDICARE, SELFPAY | END 2023-06-23 13:13 | disposition home or self-care (01) | PROVIDERS: PCP Family Medicine Adolescent Medicine; Visit Provider Otolaryngology | DX: H90.6 Mixed conductive and sensorineural hearing loss, bilateral (principal); H93.11 Tinnitus, right ear | CPT/HCPCS: 92557; 92567 ==

== ENCOUNTER 2024-06-30 08:58 | Outpatient (CLI) | payer MEDICARE, SELFPAY ==
--- NOTE | ~2024-06-30 | CT_ITS ---
EXAMINATION: CT IAC/mastoids BI w con DATE: 06/30/2024 09:33 INDICATION: Vestibular schwannoma. TECHNIQUE: Computed tomography (CT) of the temporal bones was performed with 75 mL Omnipaque 350 intr avenous contrast. Automated exposure control and iterative reconstruction technique were employed. Th e dose-length product was 302.17 mGy-cm. COMPARISON: Head CT 01/26/2022 FINDINGS: RIGHT TEMPORAL BONE: The internal auditory canal, cochlea, vestibule, semicircular canals, vestibular aqueduct, carotid ca nal, jugular bulb, facial nerve course, ossicles, Prussak space, and scutum are normal. There is a tr [place] right mastoid effusion. There is material in the external auditory canal abutting the tympanic me mbrane. LEFT TEMPORAL BONE: The internal auditory canal, cochlea, vestibule, semicircular canals, vestibular aqueduct, carotid ca nal, jugular bulb, facial nerve course, ossicles, Prussak space, and scutum are normal. There is a tr [place] left mastoid effusion. There is material in the tympanic cavity external auditory canal abutting the tympanic cavity. IMPRESSION: 1. No evidence of a vestibular schwannoma. Reviewed, dictated and finalized at location A. [employer]
[2024-06-30 09:22] LABS: Estimated Glomerular Filt Rate > 60
== END 2024-06-30 08:59 | disposition home or self-care (01) ==
PROVIDERS: PCP Family Medicine Adolescent Medicine; Visit Provider Otolaryngology
DX: D33.3 Benign neoplasm of cranial nerves (principal); H90.41 Sensorineural hearing loss, unilateral, right ear, with unrestricted hearing on the contralateral side; Z95.0 Presence of cardiac pacemaker
CPT/HCPCS: 70481; Q9967

== ENCOUNTER 2024-08-17 11:51 | Outpatient (CLI) | payer MEDICARE, SELFPAY ==
--- NOTE | ~2024-08-17 | US_ITS ---
EXAMINATION: US venous doppler [facility] DATE: 08/17/2024 12:38 INDICATION: Left lower limb edema. TECHNIQUE: Grayscale ultrasound images without and with compression and Doppler ultrasound images of the left lower extremity veins were obtained. COMPARISON: Ultrasound 10/28/16 FINDINGS: The visualized portions of left common femoral vein, profunda (deep) femoral vein, femoral vein, popl iteal vein, peroneal veins, posterior tibial veins, and greater saphenous vein outflow are patent. IMPRESSION: 1. No deep venous thrombosis. Reviewed, dictated and finalized at location A. VISION TECHNICIAN
--- OUTSIDE RECORDS SUMMARY | 2024-08-17 12:42 | XMS_ITS | Referral Summary ---
Author Organization [facility] Address [address] [facility] [place] [address] Care Team Providers Care Sensor Technician Name Role Phone Giacomo Wong MD Primary Care Provider + Source Comments [facility],non-owned Affiliates and Associated Physician Practices is amultiple site organization consisting of ambulatory clinics and hospital sitesin [place], [place], [place] and [place]. This disclosure is being madepursuant to the Care Everywhere program and may not contain all information available regarding this patient. Last updated 18.[facility] Allergies Active Allergy Reactions Criticality Noted Date Comments Latex Rash Medium 09/13/2012 Morphine Nausea and/or Vomiting 05/27/2010 Nickel Contact Dermatitis Low 06/27/2013 Active Problems Problem Noted Date Diagnosed Date Polyneuropathy 06/27/2013 Carpal tunnel syndrome 10/06/2011 Radiculopathy of lumbar region 08/25/2010 Pain of right foot 03/21/2010 Social History Tobacco Use Types Packs/Day Years Used Date Smoking Tobacco: Former Cigarettes Q uit: 07/19/1979 Smokeless Tobacco: Never Tobacco Cessation:Counseling Given: Not Answered Alcohol Use Standard Drinks/Week Comments No 0 (1 standard drink = 0.6 oz pur e alcohol) Sex and Gender Information Value Date Recorded Sex Assigned at Not on file Gender Identity Not on file Sexual Orientation Not on file Last Filed Vital Signs Vital Sign Reading Time Taken Comments Blood Pressure 137/84 02/24/2023 2:19 PM CDT Pulse 94 02/24/2023 2:19 PM CDT Temperature 36.5 ??C (97.7 ??F) 02/24/2023 2:19 PM CD T Respiratory Rate 18 02/24/2023 2:19 PM CDT Oxygen Saturation 98% 02/24/2023 2:19 PM CDT Inhaled Oxygen Concentration - - Weight 138.4 kg (305 lb 3.2 oz) 06/27/2013 9:51 AM WEB MASTER Height 180.3 cm (5' 11 ) 02/24/2023 2:19 PM CDT Body Mass Index 42.57 06/27/2013 9:51 AM WEB MASTER Plan of Treatment Not on file Care Teams Sensor Technician Relationship Specialty Start Date End Date Giacomo Wong MD [address] [id number] PCP - General 03/04/10
--- OUTSIDE RECORDS SUMMARY | 2024-08-17 12:42 | XMS_ITS | Patient Health Summary ---
Author Organization [facility] [employer] Address [address] [facility] [place] [address] Care Team Providers Care Turn Down Man Name Role Phone Giacomo Wong MD Primary Care Provider + Note from Formerly named [facility],non-owned Affiliates and Associated Physician Practices is amultiple site organization consisting of ambulatory clinics and hospital sitesin [place], [place], [place] and [place]. This disclosure is being madepursuant to the Care Everywhere program and may not contain all information available regarding this patient. Last updated 18.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, sequela * LAB HISTORICAL RESULTS-ONBASE(Performed 03/17/2012) * LAB HISTORICAL RESULTS-ONBASE(Performed 03/17/2012) * C-REACTIVE PROTEIN(Performed 03/16/2012) * ERYTHROCYTE SEDIMENTATION RATE(Performed 03/16/2012) * TSH(Performed 03/16/2012) * T4 FREE(Performed 03/16/2012) * VITAMIN B12 FOLATE PANEL(Performed 03/16/2012) * SHELLEY+PROTEIN ELECTROPHORESIS UR RANDOM(Performed 03/16/2012) * SHELLEY+PROTEIN ELECTROPH BLOOD(Performed 03/16/2012) * C-REACTIVE PROTEIN(Performed 03/16/2012) * ERYTHROCYTE SEDIMENTATION RATE(Performed 03/16/2012) * TSH(Performed 03/16/2012) * T4 FREE(Performed 03/16/2012) * VITAMIN B12 FOLATE PANEL(Performed 03/16/2012) * HEMOGLOBIN A1C(Performed 05/28/2010) * LAB HISTORICAL RESULTS-ONBASE(Performed 05/27/2010) * BUN(Performed 04/02/2010) * CREATININE BLOOD(Performed 04/02/2010) * LAB HISTORICAL RESULTS-ONBASE(Performed 03/21/2010) * LAB HISTORICAL RESULTS-ONBASE(Performed 03/21/2010) * LAB HISTORICAL RESULTS-ONBASE(Performed 03/21/2010) * LAB HISTORICAL RESULTS-ONBASE(Performed 03/21/2010) * LAB HISTORICAL RESULTS-ONBASE(Performed 03/21/2010) * REF LAB COMMENT(Performed 03/05/2010) * CRYOGLOBULIN QUALITATIVE(Performed 03/05/2010) * NEURONAL NUCLEAR AB IFA W RFLX WB(Performed 03/05/2010) * YO ANTIBODIES(Performed 03/05/2010) * HU ANTIBODY(Performed 03/05/2010) * SHELLEY+PROTEIN ELECTROPHORESIS UR RANDOM(Performed 03/05/2010) * PROTEIN ELECTROPHORESIS WO INTERP BLOOD(Performed 03/05/2010) * JOSIAH PANEL COMPREHENSIVE(Performed 03/05/2010) * RHEUMATOID FACTOR+SSA+SSB(Performed 03/05/2010) * CRYOGLOBULIN QUALITATIVE(Performed 03/05/2010) * SHELLEY+PROTEIN ELECTROPHORESIS UR RANDOM(Performed 03/05/2010) * PROTEIN ELECTROPHORESIS WO INTERP BLOOD(Performed 03/05/2010) * JOSIAH PANEL COMPREHENSIVE(Performed 03/05/2010) * RHEUMATOID FACTOR+SSA+SSB(Performed 03/05/2010) Results * XR HUMERUS LEFT 2VW OR MORE (02/24/2023 3:54 PM CDT) Anatomical Region Laterality Modality Upper Extremity Radiographic Sunni ging 02/24/2023 3:56 PM CDT Impressions 02/24/2023 3:58 PM CDT IMPRESSION: 1. Internal fixation of the a mid to distal humeral shaft fracture. 2. 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 > Interpreting Provider: Naeem Rowley MD on 02/24/2023 3:58 PM Narrative 02/24/2023 3:58 PM CDT PROCEDURE: ??XR HUMERUS LEFT 2VW OR MORE DATE/TIME OF EXAM: ??02/24/2023 3:54 PM CLINICAL INFORMATION: None relevant/not provided if blank. 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 TECHNIQUE: FINDINGS: Findings of open reduction and internal fixation of a mid to distal humeral shaft fracture with plates and screws. The hardware is intact and the alignment is anatomic. There is a sclerotic bone lesion in the humeral neck/proximal shaft measuring 4.0 cm. No cortical breakthrough or periosteal reaction. Electrodes are present in the left chest wall. Procedure Note Naeem Rowley MD - 02/24/2023 PROCEDURE: XR HUMERUS LEFT 2VW OR MORE DATE/TIME OF EXAM: 02/24/2023 3:54 PM CLINICAL INFORMATION: None relevant/not provided if blank. 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 TECHNIQUE: FINDINGS: Findings of open reduction and internal fixation of a mid to distalhumeral shaft fracture with plates and screws. The hardware is intact and the alignment is anatomic. There is a sclerotic bone lesion in the humeral neck/proximal shaft measuring 4.0 cm. No cortical breakthrough or periosteal reaction. Electrodes are present in the left chest wall. IMPRESSION: 1. Internal fixation of the a mid to distal humeral shaft fracture. 2. 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 > Interpreting Provider: Naeem Rowley MD on 02/24/2023 3:58 PM Sanjeev Aguilar MD DIAGNOSTIC IMAGING ORDERABLES * LAB HISTORICAL RESULTS-ONBASE (03/17/2012) Only the most recent of8 resultswithin the time period is included. 03/17/2012 Narrative [facility] - 03/17/2012 2:26 PM CDT Historical Provider LAB - CHEMISTRY O RDERABLES Performing Organization Address City/State/[facility] Co de Phone Number [facility] [address] * (ABNORMAL) SHELLEY+PROTEIN ELECTROPHORESIS UR RANDOM (03/16/2012 9:37 AM CDT) Only the most recent of3 resultswithin the time period is included. Protein Total Urine 17.2(H) 0.0 - 15.0 mg/dL [facility] (BEAKER) Albumin Urine 33.7 % [facility] (BEAKER) Oofza-5-Ylssxlql Urine 5.5 % [facility] (BEAKER) Vdliv-5-Hepnayry Urine 15.1 % [facility] (BEMILVIA) Beta-Globulin Urine 31.4 % [facility] ([place]) Gamma Globulin Urine 14.2 % [facility] ([place]) M-Jac % Not Observed Not Observed % [facility] ([place]) Immunofixation Urine [facility] (BEMILVIA) Comment:No monoclonality det ected. Note [facility] ([facility]) Comment: Protein electrophoresis scan will follow via computer, mail, or apprentice instrument technician delivery. 03/16/2012 9:37 AM CDT 03/16/2012 1:[address] [facility] ([place] - 03/17/2012 3:14 PM CDT Performed at: ??[address] - [address], [place], [place] ??[id number] Wreath Machine Tender: Mady Ku MD, Phone: ??[phone] Nic Thomas MD LAB - URINE CHEMISTR Y ORDERABLES [facility] ([place]) * (ABNORMAL) SHELLEY+PROTEIN ELECTROPH BLOOD (03/16/2012 9:37 AM CDT) IgG Quantitative 608(L) 700 - 1600 mg/dL [facility] ([place]OLD) IgA Quantitative 117 70 - 400 mg/dL [facility] (GOLD) Comment: Effective March 28, 2012, the reference ??interval for Immunoglobulin A, Qn, Serum ??will be changing to: ?0 - 11 months ?11 - 58 ?1 - ??2 years ? 20 - 101 ?3 - ??6 years ? 44 - 189 ?7 - 12 years ? 62 - 236 ? 13 - 17 years ? 77 - 278 ? 18 years and older ?91 - 414 IgM Quantitative 55 40 - 230 mg/dL [facility] (BEAKER) Protein Total 6.1 6.0 - 8.5 g/dL [facility] (BEAKER) Albumin 3.5 3.2 - 5.6 g/dL [facility] (BEAKER) Iucdz-3-Xzypgggb 0.2 0.1 - 0.4 g/dL [facility] (BEAKER) Wfety-3-Iwcjhvxa 0.7 0.4 - 1.2 g/dL [facility] (BEAKER) Beta-Globulin 1.0 0.6 - 1.3 g/dL [facility] (BEAKER) Gamma Globulin 0.6 0.5 - 1.6 g/dL [facility] (BEAKER) M-Jac % Not Observed Not Observed g/dL [facility] (BEAKER) Globulin Total 2.6 2.0 - 4.5 g/dL [facility] (BEAKER) Albumin/Globulin Ratio 1.4 0.7 - 2.0 [facility] (BEAKER) Immunofixation Result [facility] (BEAKER) Comment:An apparent normal i mmunofixation pattern. Please Note [facility] (BEAKER) Comment: Protein electrophoresis scan will follow via computer, mail, or apprentice instrument technician delivery. 03/16/2012 9:37 AM CDT 03/16/2012 1:[address] [facility] (BEAKER) - 03/17/2012 3:14 PM CDT Performed at: ??01 - [address], [place], [place] ??[id number] Wreath Machine Tender: Mady Ku MD, Phone: ??[phone] Nic Thomas MD LAB - CHEMISTRY GOPAL YUN Performing Organization Address City/[facility]/ZIP Co de Phone Number [facility] ([facility]) * C-REACTIVE PROTEIN (03/16/2012 9:37 AM CDT) Only the most recent of2 resultswithin the time period is included. C-Reactive Protein 2.1 0.0 - 4.9 mg/L [facility] ([facility]) 03/16/2012 9:37 AM CDT 03/16/2012 1:[address] [facility] ([facility]) - 03/17/2012 3:14 PM CDT Performed at: ??01 - [address] ??[id number] Wreath Machine Tender: Mady Ku MD, Phone: ??[phone] Nic Thomas MD LAB - CHEMISTRY GOPAL YUN Performing Organization Address [facility] Co de Phone Number [facility] ([facility]) * ERYTHROCYTE SEDIMENTATION RATE (03/16/2012 9:37 AM CDT) Only the most recent of2 resultswithin the time period is included. Erythrocyte Sedimentation Rate Westergren 16 0 - 40 mm/hr [facility] ([facility]) 03/16/2012 9:37 AM CDT 03/16/2012 1:[address] [facility] ([facility]) - 03/17/2012 3:14 PM CDT Performed at: ??01 - [facility] ??[id number] Wreath Machine Tender: Mady Ku MD, Phone: ??[phone] Nic Thomas MD LAB - HEMATOLOGY ORD ERABLES Performing Organization Address City/[facility]/ZIP Co de Phone Number [facility] ([facility]) * VITAMIN B12 FOLATE PANEL (03/16/2012 9:37 AM CDT) Only the most recent of2 resultswithin the time period is included. Vitamin B12 674 211 - 946 pg/mL [facility] ([facility]) Folate >19.9 >3.0 ng/mL [facility] ([facility]) Comment: A serum folate concentration of less than 3.1 ng/mL is considered to represent clinical deficiency. 03/16/2012 9:37 AM CDT 03/16/2012 1:[address] [facility] ([facility]) - 03/17/2012 3:14 PM CDT Performed at: ??[address] ??[id number] Wreath Machine Tender: Mady Ku MD, Phone: ??[phone] Nic Thomas MD LAB - CHEMISTRY GOPAL YUN Performing Organization Address [facility] Co de Phone Number [facility] ([facility]) * TSH (03/16/2012 9:37 AM CDT) Only the most recent of2 resultswithin the time period is included. TSH 3.460 0.450 - 4.500 uIU/mL [facility] ([facility]) 03/16/2012 9:37 AM CDT 03/16/2012 1:[address] [facility] ([facility]) - 03/17/2012 3:14 PM CDT Performed at: ??01 - [address] ??[id number] Wreath Machine Tender: Mady Ku MD, Phone: ??[phone] Nic Thomas MD LAB - CHEMISTRY GOPAL YUN Performing Organization Address [facility] Co de Phone Number [facility] ([facility]) * T4 FREE (03/16/2012 9:37 AM CDT) Only the most recent of2 resultswithin the time period is included. T4 Free 1.28 0.82 - 1.77 ng/dL [facility] (GOLD) 03/16/2012 9:37 AM CDT 03/16/2012 1:[address] [facility] ([place]) - 03/17/2012 3:14 PM CDT Performed at: ??01 - [facility] [address] ??[id number] Wreath Machine Tender: Mady Ku MD, Phone: ??[phone] Nic Thomas MD LAB - CHEMISTRY GOPAL YUN Performing Organization Address City/[facility]/ZIP Co de Phone Number [facility] ([place]) * HEMOGLOBIN A1C (05/28/2010 11:13 AM CREDIT OR LOANS OFFICER) Hemoglobin A1c 5.4 4.8 - 5.6 % [facility] ([place]) Comment: Increased risk for diabetes: ?5.7 - 6.4 Diabetes: ?>6.4 Glycemic control for adults with diabetes: ? <7.0 Blood specimen (specimen) 05/28/2010 11:13 AM CREDIT OR LOANS OFFICER 05/28/2010 5:02 PM CREDIT OR LOANS OFFICER Narrative [facility] (GOLD) - 05/29/2010 7:21 AM CREDIT OR LOANS OFFICER Preferred Lab:->[facility] Performed at: ??01 - [facility] [address] ??[id number] Wreath Machine Tender: Mady Ku MD, Phone: ??[phone] Alaina Tony MD LAB - CHEMISTRY GOPAL YUN [facility] (GOLD) * BUN (04/02/2010 10:09 AM CDT) BUN 16 5 - 26 mg/dL [facility] (BEAKER) Blood specimen (specimen) 04/02/2010 10:09 AM CDT 04/02/2010 5:[address] [facility] (BEAKER) - 04/03/2010 7:21 AM CDT Preferred Lab:->[facility] Performed at: ??01 - [facility] ??[id number] Wreath Machine Tender: Mady Ku MD, Phone: ??[phone] Alaina Tony MD LAB - CHEMISTRY GOPAL YUN Performing Organization Address [facility]/ZIP Co de Phone Number [facility] ([facility]) * CREATININE BLOOD (04/02/2010 10:08 AM CDT) Creatinine 0.81 0.57 - 1.00 mg/dL [facility] ([facility]) Blood specimen (specimen) 04/02/2010 10:08 AM CDT 04/02/2010 5:[address] [facility] (BEAKER) - 04/03/2010 7:21 AM CDT Preferred Lab:->[facility] Performed at: ??01 - [facility] ??[id number] Wreath Machine Tender: Mady Ku MD, Phone: ??[phone] Alaina Tony MD LAB - CHEMISTRY GOPAL YUN Performing Organization Address [facility]/ZIP Co de Phone Number [facility] ([facility]) * RHEUMATOID FACTOR+SSA+SSB (03/05/2010 11:56 AM CDT) Only the most recent of2 resultswithin the time period is included. RA latex Turbidimetry 9.6 0.0 - 13.9 IU/mL [facility] ([facility]) Sjogren's Antibodies (SSA) <0.2 0.0 - 0.[address] [facility] ([facility]) Sjogren's Antibodies (SSB) <0.2 0.0 - 0.[address] [facility] ([place]) 03/05/2010 11:5 6 AM CDT 03/05/2010 6:[address] [facility] ([place]) - 03/11/2010 7:22 AM CDT Performed at: ??01 - [facility], [place], [place] ??[id number] Wreath Machine Tender: Mady Ku MD, Phone: ??[phone] Alaina Tony MD LAB - SEROLOGY ORDER RUTH Performing Organization Address City/[facility]/ZIP Co de Phone Number [facility] ([place]) * NEURONAL NUCLEAR AB IFA W RFLX WB (03/05/2010 11:56 AM CDT) PRISCA-2 (Anti Ri) Titer [facility] ([place] Comment: Negative: < 1:10 ? Reference Range: ? Negative: < 1:10 titer ? Positive: => 1:10 titer 03/05/2010 11:5 6 AM CDT 03/05/2010 6:[address] [facility] ([place]) - 03/11/2010 7:22 AM CDT Performed at: ??02 - [facility] [address] ??[id number] Wreath Machine Tender: Rakan Medina , Phone: ??[phone] Alaina Tony MD LAB - SEROLOGY ORDER RUTH Performing Organization Address City/[facility]/ZIP Co de Phone Number [facility] ([place]) * YO ANTIBODIES (03/05/2010 11:56 AM CDT) Anti-Yo Antibody titer [facility] ([place] Comment: Negative: < 1:10 ? Reference Range: ? Negative: < 1:10 titer ? Positive: => 1:10 titer 03/05/2010 11:5 6 AM CDT 03/05/2010 6:[address] [facility] (BEAKER) - 03/11/2010 7:22 AM CDT Performed at: ??02 - [facility] [address] [place] [address] ??[id number] Wreath Machine Tender: Rakan Medina , Phone: ??[phone] Alaina Tony MD LAB - SEROLOGY ORDER RUTH [facility] (BEAKER) * PROTEIN ELECTROPHORESIS WO INTERP BLOOD (03/05/2010 11:56 AM CDT) Only the most recent of2 resultswithin the time period is included. Total Protein 7.4 6.0 - 8.5 g/dL [facility] (BEAKER) Albumin 4.2 3.2 - 5.6 g/dL [facility] (BEAKER) Igfdh-6-Gdjwntfw 0.3 0.1 - 0.4 g/dL [facility] (BEAKER) Hpqge-4-Qmrntjxn 0.8 0.4 - 1.2 g/dL [facility] (BEAKER) Beta-Globulin 1.3 0.6 - 1.3 g/dL [facility] (BEAKER) Gamma Globulin 0.8 0.5 - 1.6 g/dL [facility] (BEAKER) M-Jac % Not Observed Not Observ g/dL [facility] (BEAKER) Globulin Total 3.2 2.0 - 4.5 g/dL [facility] (BEAKER) Albumin/Globulin Ratio 1.3 0.7 - 2.0 [facility] (BEAKER) Please Note [facility] (BEAKER) Comment: Protein electrophoresis scan will follow via computer, mail, or apprentice instrument technician delivery. 03/05/2010 11:5 6 AM CDT 03/05/2010 6:[address] [facility] (BEAKER) - 03/11/2010 7:22 AM CDT Performed at: ??01 - [facility] [address] ??[id number] Wreath Machine Tender: Mady Ku MD, Phone: ??[phone] Alaina Tony MD LAB - CHEMISTRY GOPAL YUN [facility] * REF LAB COMMENT (03/05/2010 11:56 AM CDT) Comment Serology [facility] ([facility]) Comment: Antibodies to Hu antigen also called antineuronal nuclear antibody (PRISCA-1) are present in patients with paraneoplastic neurologic syndrome such as Encephalomyelitis and are frequently associated with small-cell lung cancer and neuroblastoma and rarely with non-small cell lung cancer, prostate cancer or seminoma. Antibodies to Yo are associated with paraneoplastic disorders (cerebellar degeneration) occurring in patients with small cell lung cancer (SCLC), gynecologic or breast cancer. Antibodies to Ri, also referred to as anti-neuronal nuclear antibody type 2 (PRISCA-2) is associated with paraneoplastic syndromes. The paraneoplastic syndromes associated with the presence of Ri antibodies include opsoclonus, ataxia, nystagmus, dizziness and dysarthria. *This test has been developed and performance parameters have been validated by [employer] This test has not been approved by the U.S. Food and Drug Administration (FDA); however, US FDA approval is not required for clinical use. It is not intended that clinical diagnosis and patient management decisions be made using these results alone. 03/05/2010 11:5 6 AM CDT 03/05/2010 6:38 PM CDT Narrative [facility]) - 03/11/2010 7:22 AM CDT Performed at: ??02 - [facility] [address] [place] [address] ??[id number] Wreath Machine Tender: Rakan Medina , Phone: ??[phone] Alaina Tony MD LAB - CHEMISTRY GOPAL YUN [facility] ([facility]) * JOSIAH PANEL COMPREHENSIVE (03/05/2010 11:56 AM CDT) Only the most recent of2 resultswithin the time period is included. Anti-dsDNA Quantitative <1 0 - 9 IU/mL [facility]) Comment: ? Negative ?<5 ? Equivocal ??5 - 9 ? Positive ?>9 ENGLISH LANGUAGE LEARNER TUTOR Antibody <0.2 0.0 - 0.[address] [facility] ([employer]) Funez Antibody <0.2 0.0 - 0.[address] [facility] ([employer]) Antiscleroderma-70 Antibody <0.2 0.0 - 0.[address] [facility] ([employer]) Antichromatin Antibody IgG <0.2 0.0 - 0.[address] [facility] ([employer]) Anti-Armida-1 <0.2 0.0 - 0.[address] [facility] ([employer]) Anti-Centromere B Antibody <0.2 0.0 - 0.9 [facility] ([employer]) See below [facility] ([employer]) Comment: Autoantibody ? Disease Association ?Condition ?Frequency ? --------- Antinuclear Antibody, ?SLE, mixed connective Direct (JOSIAH-D) ? tissue diseases ? --------- dsDNA ?SLE ?40 - 60% ? --------- Chromatin ?Drug induced SLE ?90% ? SLE ?48 - 97% ? --------- SSA (Ro) ? SLE ?25 - 35% ? Sjogren's Syndrome ? 40 - 70% ? Lupus ? 100% ? --------- SSB (La) ? SLE ? 10% ? Sjogren's Syndrome ?30% ?--------- Sm (anti-Funez) ?SLE ?15 - 30% ?--------- ENGLISH LANGUAGE LEARNER TUTOR ?Mixed Connective Tissue ? Disease ? 95% (U1 nRNP, ?SLE ?30 - 50% anti-ribonucleoprotein) ??Polymyositis and/or ? Dermatomyositis ? 20% ? --------- Scl-70 (antiDNA ?Scleroderma (diffuse) ?20 - 35% topoisomerase) ? Crest ? 13% ? --------- Armida-1 ? Polymyositis and/or ? Dermatomyositis ?20 - 40% ? --------- Centromere B ? Scleroderma - Crest ? variant ? 80% 03/05/2010 11:5 6 AM CDT 03/05/2010 6:[address] [facility] ([place]) - 03/11/2010 7:22 AM CDT Performed at: ??01 - [facility] [address] ??[id number] Wreath Machine Tender: Mady Ku MD, Phone: ??[phone] Alaina Tony MD LAB - SEROLOGY LAYLA RUTH [facility] ([place]) * HU ANTIBODY (03/05/2010 11:56 AM CDT) PRISCA-1 (Anti-Hu) Titer [facility] ([facility]) Comment: Negative: < 1:10 ? Reference Range: ? Negative: < 1:10 titer ? Positive: => 1:10 titer 03/05/2010 11:5 6 AM CDT 03/05/2010 6:[address] [facility] ([facility]) - 03/11/2010 7:22 AM CDT Performed at: ??02 - [facility] [address] ??[id number] Wreath Machine Tender: Rakan Medina , Phone: ??[phone] Alaina Tony MD LAB - SEROLOGY ORDER RUTH Performing Organization Address City/[facility]/ZIP Co de Phone Number [facility] ([facility]) * CRYOGLOBULIN QUALITATIVE (03/05/2010 11:56 AM CDT) Only the most recent of2 resultswithin the time period is included. Cryoglobulin Qualitative Reflex None detec [facility] ([facility]) Comment:None Detected at 72 hours 03/05/2010 11:5 6 AM CDT 03/05/2010 6:[address] [facility] ([facility]) - 03/11/2010 7:22 AM CDT Performed at: ??01 - [facility] [address] ??[id number] Wreath Machine Tender: Mady Ku MD, Phone: ??[phone] Alaina Tony MD LAB - CHEMISTRY [address] [facility] ([facility]) Care Teams Turn Down Man Relationship Specialty Start Date End Date Giacomo Wong MD [address] [place] [address] [facility] - General 03/04/10
--- OUTSIDE RECORDS SUMMARY | 2024-08-17 12:42 | XMS_ITS | Encounter Summary ---
Author Organization [facility] Address [address] [place] [address] Phone Care Team Providers Care Quiller Machine Fixer Name Role Phone Giacomo Wong MD Primary Care Prov ider Lexi Tyler MD Unavailable Terra Andre MD PhD Unavailable [phone] Encounter Details Date Type Department Care Team (Late st Contact Info) Description 11/08/2017 Orders Only [facility]INCON[facility] Provider, MD Sandra [address] [place] [address] Social History Tobacco Use Types Packs/Day Years Used Date Smoking Tobacco: Former Smokeless Tobacco: Never Alcohol Use Standard Drinks/Week Comments No 0 (1 standard drink = 0.6 oz pur e alcohol) Comments Unknown Sex and Gender Information Value Date Recorded Sex Assigned at Not on file Legal Sex Female 7:49 PM COMMUNITY RELATIONS ASSISTANT Gender Identity Female 04/07/2021 9:20 AM CDT Sexual Orientation Straight 08/16/2020 10 :27 PM COMMUNITY RELATIONS ASSISTANT documented as of this encounter Plan of Treatment Not on file documented as of this encounter Procedures Procedure Name Priority Date/Time Associated Diagnosis Comments CARDIOLOGY REPORT 11/08/2017 documented in this encounter Results * CARDIOLOGY REPORT (11/08/2017) Anatomical Region Laterality Modality Other Narrative 11/08/2017 Ordered by an unspecified provider. us Historical Provider [facility] Final Result documented in this encounter Visit Diagnoses Not on filedocumented in this encounter Care Teams Quiller Machine Fixer Relationship Specialty Start Date End Date Giacomo Wong MD [address] [place] [address] PCP - General 09/02/16 Lexi Tyler MD [address] [place] [address] Consulting Physician Medical Oncology 08/26/20 Terra Ander [place] PhD [address] [place] [address] 7 [facility] [place] [address] Consulting Physician Medical Oncology 03/30/23 documented as of this encounter
--- OUTSIDE RECORDS SUMMARY | 2024-08-17 12:42 | XMS_ITS | Clinical Summary ---
Author Organization [facility] [employer] Address [address] [facility] [address] Care Team Providers Care Shipping Checker Name Role Phone Giacomo Wong MD Primary Care Provider + Source Comments [facility],non-owned Affiliates and Associated Physician Practices is amultiple site organization consisting of ambulatory clinics and hospital sitesin [place], [place], [place] and [place]. This disclosure is being madepursuant to the Care Everywhere program and may not contain all information available regarding this patient. Last updated 18.[facility] [employer] Allergies Active Allergy Reactions Criticality Noted Date [...] (305 lb 3.2 oz) 06/27/2013 9:51 AM BELLHOP CAPTAIN Height 180.3 cm (5' 11 ) 02/24/2023 2:19 PM CDT Body Mass Index 42.57 06/27/2013 9:51 AM BELLHOP CAPTAIN Plan of Treatment Health Maintenance Due Date Last Done Comments BONE DENSITY TESTING 1955 COLOGUARD (AGES 45-75) - COLON CA SCREENING 1953 COLON MONITORING 1953 COLONOSCOPY - COLON CA SCREENING 1953 CT COLONOGRAPHY - COLON CA SCREENING 1953 Colorectal Cancer Screening 1953 FIT - COLON CA SCREENING 1953 FLEX SIG - COLON CA SCREENING 1953 LIPID TESTING 1953 MAMMOGRAM 1953 MEDICARE AWV ? 12 MONTHS 1953 HEPATITIS C SCREENING 04/16/1971 DTAP/TDAP/TD VACCINES (1 - Tdap) 1972 PNEUMOCOCCAL VACCINE 50+ (1 of 1 - PCV) 2003 ZOSTER VACCINE (1 of 2) 2003 Respiratory Syncytial Virus (RSV) Vaccine Pt: or over 60 yrs (1 - Risk 60-74 years 1-dose series) 2013 COVID-19 VACCINE ( season) 2024 10/01/2020, 09/18/2020, 08/21/2020 INFLUENZA VACCINE (#1) 2024 9, 04/27/2016, 05/29/2015, Additional history exists DEPRESSION SCREENING 07/19/2024 HEPATITIS B VACCINE Aged Out No longe r eligible based on patient's age to complete this topic HIB VACCINE Aged Out No longer eligi ble based on patient's age to complete this topic HPV VACCINE Aged Out No longer eligi ble based on patient's age to complete this topic MENINGOCOCCAL (Group B) VACCINE Aged Out No longer eligible based on patient's age to complete this topic MENINGOCOCCAL VACCINE Aged Out No regan sid eligible based on patient's age to complete this topic Care Teams Shipping Checker Relationship Specialty Start Date End Date Giacomo Wong MD [address] [place] [address] PCP - General 03/04/10
--- OUTSIDE RECORDS SUMMARY | 2024-08-17 12:42 | XMS_ITS ---
Author Organization [facility] Address [address] [place] [address] Care Team Providers Care Appliances Sample Maker Name Role Phone Giacomo Wong MD Primary Care Prov ider Lexi Tyler MD Unavailable [phone] Terra Andre MD PhD Unavailable [phone] Active Problems Problem Noted Date Diagnosed Date Failed orthopedic implant, initial encounter Painful orthopaedic hardware 11/03/2023 Bilateral primary osteoarthritis of knee 023 Bilateral lower extremity edema 02/21/2022 Assessment & Plan (02/24/2022 12:11 PM CDT): Likely multifactorial in nature- immobility, venous insufficiency + prolonged time in recliner, fluids No overt HF, echo with intact lvsf, mild lvh without sig diastolic dysfunction, top normal pasp No proteinuria Neg LE dopplers Plan IV lasix today Oral lasix, KCl supplements subsequently Elevate legs, [place] wraps/franchesca hose Assessment & Plan (02/23/2022 4:53 PM CDT): Likely multifactorial in nature- immobility, venous insufficiency + prolonged time in recliner, fluids No overt HF, echo with intact lvsf, mild lvh without sig diastolic dysfunction, top normal pasp No proteinuria Neg LE dopplers Plan IV lasix today Oral lasix, KCl supplements subsequently Elevate legs, [place] wraps/franchesca hose Elevated LFTs 02/21/2022 Assessment & Plan (02/24/2022 12:12 PM CDT): Transient and improved Chronic alk phos elevation, brief increase in ast/alt ?congestive vs meds vs remainder of wide differential dx Assessment & Plan (02/23/2022 4:53 PM CDT): Transient and improved Chronic alk phos elevation, brief increase in ast/alt ?congestive vs meds vs remainder of wide differential dx Hyperparathyroidism 02/21/2022 Assessment & Plan (02/24/2022 12:12 PM CDT): With mild hypercalcemia, improved on latest labs Seen by endocrinology, recommend remainder of workup in clinic follow up Thiazide stopped Assessment & Plan (02/23/2022 4:54 PM CDT): With mild hypercalcemia, improved on latest labs Seen by endocrinology, recommend remainder of workup in clinic follow up Thiazide stopped Cellulitis vs bland venous stasis dermatitis 12/2021 Assessment & Plan (02/24/2022 12:12 PM CDT): Likely largely stasis, cannot exclude superimposed infection, treated with doxycycline Cont local care Assessment & Plan (02/23/2022 4:55 PM CDT): Likely largely stasis, cannot exclude superimposed infection, treated with doxycycline Cont local care Age-related osteoporosis wit h current pathological fracture of left humerus 02/18/2022 Closed fracture of left upper limb 02/11/2022 Overview (02/11/2022): Added automatically from request for surgery [id number] Assessment & Plan (02/24/2022 12:11 PM CDT): Orthopedic surgery is following. Case discussed in detail with CHIEF PHYSICAL THERAPIST. Drain still in place- to remain until office follow up, keep on doxy. VTE ppx witb bid asa 81 Pain control with gabapentin and PRN oxycodone 5 mg Q4 hours, bowel regimen Assessment & Plan (02/23/2022 4:50 PM CDT): Orthopedic surgery is following. Case discussed in detail with CHIEF PHYSICAL THERAPIST. Drain still in place- to remain until office follow up, keep on doxy. 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 Polyp of colon 04/29/2015 Mass of breast 09/26/2014 Difficulty in swallowing 08/08/2014 Mass 05/18/2014 Polyneuropathy 06/27/2013 Presence of cardiac pacemaker 02/01/2013 Hereditary nonpolyposis colorectal cancer (HNPCC ) syndrome 01/08/2012 Carpal tunnel syndrome 10/06/2011 Hyperlipidemia 12/01/2010 Overview (10/29/2017): Description: Hyperlipidemia Sick sinus syndrome (CMS/HCC) 12/01/2010 Radiculopathy of lumbar region 08/25/2010 Pain of right foot 03/21/2010 Sinus bradycardia 10/25/2008 Hypertension 10/25/2008 Class 3 severe obesity due t o excess calories with serious comorbidity and body mass index (BMI) of 40.0 to 44.9 in adult 10/25/2008 Current Oncology Plans No current plan information found. Past Plans No past plan information found. Radiation Treatments * No radiation treatments are documented for this patient in Epic. Treatments may have been administered in another system. Lifetime Dose Tracking * Chemical Lifetime Dose Automatic Entry Manual Entr y Fluoro Time 2.988 minutes 2.988 minutes 0 minutes Air kerma at the reference point (Ka,r) 60.61 mGy 6 0.61 mGy 0 mGy DLP 19,181 mGycm 19,181 mGycm 0 mGycm Resolved Problems Problem Noted Date Diagnosed Date Resolved Date thy 08/12/2021 03/17/2022 Knee pain 07/16/2016 02/18/2018 Urinary tract infection 09/24/2014 08/0 09/2017 Abdominal pain 08/08/2014 02/18/2018 Chest pain 12/23/2011 02/18/2018
--- OUTSIDE RECORDS SUMMARY | 2024-08-17 12:43 | XMS_ITS | Encounter Summary ---
Author Organization [facility] Address [address] [place] [address] Phone Care Team Providers Care Paint Stockman Name Role Phone Giacomo Wong MD Primary Care Prov ider Lexi Tyler MD Unavailable [phone] Terra Andre MD PhD Unavailable [phone] Encounter Details Date Type Department Care Team (Late st Contact Info) Description 07/17/2013 Orders Only [facility] CAR CLINCONV Provider, MD Sandra [address] [place] [address] Social History Tobacco Use Types Packs/Day Years Used Date Smoking Tobacco: Never Assessed Comments Unknown Sex and Gender Information Value Date Recorded Sex Assigned at Not on file Legal Sex Female 7:49 PM LINE DEPARTMENT SUPERVISOR Gender Identity Female 04/07/2021 9:20 AM CDT Sexual Orientation Straight 08/16/2020 10 :27 PM LINE DEPARTMENT SUPERVISOR documented as of this encounter Plan of Treatment Not on file documented as of this encounter Procedures Procedure Name Priority Date/Time Associated Diagnosis Comments CARDIOLOGY REPORT 07/17/2013 documented in this encounter Results * CARDIOLOGY REPORT (07/17/2013) Anatomical Region Laterality Modality Other Narrative 07/17/2013 Ordered by an unspecified provider. us Historical Provider [facility] Final Result documented in this encounter Visit Diagnoses Not on filedocumented in this encounter Care Teams Paint Stockman Relationship Specialty Start Date End Date Giacomo Wong MD [address] [place] [address] PCP - General 09/02/16 Lexi Tyler MD [address] [place] [address] Consulting Physician Medical Oncology 08/26/20 [place] PhD [address] [place] [address] 7 [facility] [place] [address] Consulting Physician Medical Oncology 03/30/23 documented as of this encounter
--- OUTSIDE RECORDS SUMMARY | 2024-08-17 12:43 | XMS_ITS | Encounter Summary ---
Author Organization [facility] Address [address] [place] [address] Phone Care Team Providers Care Legal Secretary Name Role Phone Giacomo Wong MD Primary Care Prov ider Lexi Tyler MD Unavailable [phone] Terra Andre MD PhD Unavailable [phone] Encounter Details Date Type Department Care Team (Late st Contact Info) Description 09/15/2016 Orders Only [facility] IM CAR CLINCONV Provider, MD Sandra [address] [place] [address] Social History Tobacco Use Types Packs/Day Years Used Date Smoking Tobacco: Never Assessed Comments Unknown Sex and Gender Information Value Date Recorded Sex Assigned at Not on file Legal Sex Female 7:49 PM MACHINE STRIPPER CUTTER Gender Identity Female 04/07/2021 9:20 AM CDT Sexual Orientation Straight 08/16/2020 10 :27 PM MACHINE STRIPPER CUTTER documented as of this encounter Plan of Treatment Not on file documented as of this encounter Procedures Procedure Name Priority Date/Time Associated Diagnosis Comments CARDIOLOGY REPORT 09/15/2016 documented in this encounter Results * CARDIOLOGY REPORT (09/15/2016) Anatomical Region Laterality Modality Other Narrative 09/15/2016 Ordered by an unspecified provider. us Historical Provider [facility] Final Result documented in this encounter Visit Diagnoses Not on filedocumented in this encounter Care Teams Legal Secretary Relationship Specialty Start Date End Date Giacomo Wong MD [address] [place] [address] PCP - General 09/02/16 Lexi Tyler MD [address] [place] [address] Consulting Physician Medical Oncology 08/26/20 [place] PhD [address] [place] [address] 7 [facility] [place] [address] Consulting Physician Medical Oncology 03/30/23 documented as of this encounter
--- OUTSIDE RECORDS SUMMARY | 2024-08-17 12:43 | XMS_ITS | Encounter Summary ---
Author Organization [facility] Address [address] [place] [address] Phone Care Team Providers Care Security Researcher Name Role Phone Giacomo Wong MD Primary Care Prov ider Lexi Tyler MD Unavailable [phone] Terra Andre MD PhD Unavailable [phone] Encounter Details Date Type Department Care Team (Late st Contact Info) Description 08/12/2015 Orders Only [facility] IM CAR CLINCONV Provider, MD Sandra [address] [place] [address] Social History Tobacco Use Types Packs/Day Years Used Date Smoking Tobacco: Never Assessed Comments Unknown Sex and Gender Information Value Date Recorded Sex Assigned at Not on file Legal Sex Female 7:49 PM COMMERCIAL PILOT Gender Identity Female 04/07/2021 9:20 AM CDT Sexual Orientation Straight 08/16/2020 10 :27 PM COMMERCIAL PILOT documented as of this encounter Plan of Treatment Not on file documented as of this encounter Procedures Procedure Name Priority Date/Time Associated Diagnosis Comments CARDIOLOGY REPORT 08/12/2015 documented in this encounter Results * CARDIOLOGY REPORT (08/12/2015) Anatomical Region Laterality Modality Other Narrative 08/12/2015 Ordered by an unspecified provider. us Historical Provider [facility] Final Result documented in this encounter Visit Diagnoses Not on filedocumented in this encounter Care Teams Security Researcher Relationship Specialty Start Date End Date Giacomo Wong MD [address] [place] [address] PCP - General 09/02/16 Lexi Tyler MD [address] [place] [address] Consulting Physician Medical Oncology 08/26/20 [place] PhD [address] [place] [address] 7 [facility] [place] [address] Consulting Physician Medical Oncology 03/30/23 documented as of this encounter
--- OUTSIDE RECORDS SUMMARY | 2024-08-17 12:43 | XMS_ITS | Encounter Summary ---
Author Organization [facility] Address [address] [place] [address] Phone Care Team Providers Care Partner Management Consultant Name Role Phone Giacomo Wong MD Primary Care Prov ider Lexi Tyler MD Unavailable [phone] Terra Andre MD PhD Unavailable [phone] Encounter Details Date Type Department Care Team (Late st Contact Info) Description 07/24/2013 Orders Only [facility] CAR CLINCONV Provider, MD Sandra [address] [place] [address] Social History Tobacco Use Types Packs/Day Years Used Date Smoking Tobacco: Never Assessed Comments Unknown Sex and Gender Information Value Date Recorded Sex Assigned at Not on file Legal Sex Female 7:49 PM TELEMARKETING SALES REPRESENTATIVE Gender Identity Female 04/07/2021 9:20 AM CDT Sexual Orientation Straight 08/16/2020 10 :27 PM TELEMARKETING SALES REPRESENTATIVE documented as of this encounter Plan of Treatment Not on file documented as of this encounter Procedures Procedure Name Priority Date/Time Associated Diagnosis Comments CARDIOLOGY REPORT 07/24/2013 documented in this encounter Results * CARDIOLOGY REPORT (07/24/2013) Anatomical Region Laterality Modality Other Narrative 07/24/2013 Ordered by an unspecified provider. us Historical Provider [facility] Final Result documented in this encounter Visit Diagnoses Not on filedocumented in this encounter Care Teams Partner Management Consultant Relationship Specialty Start Date End Date Giacomo Wong MD [address] [place] [address] PCP - General 09/02/16 Lexi Tyler MD [address] [place] [address] Consulting Physician Medical Oncology 08/26/20 [place] PhD [address] [place] [address] 7 [facility] [place] [address] Consulting Physician Medical Oncology 03/30/23 documented as of this encounter
--- OUTSIDE RECORDS SUMMARY | 2024-08-17 12:43 | XMS_ITS | Clinical Summary ---
Author Organization [facility] Address [address] [address] Phone Care Team Providers Care Care Coordinator Name Role Phone Giacomo Wong MD Primary Care Provider + Allergies Active Allergy Reactions Criticality Noted Date Comments Adhesive Tape 12/03/2016 Latex 12/03/2016 Morphine Vomiting 12/03/2016 Nickel 12/03/2016 Medications chlorthalidone (HYGROTON) 25 MG Tablet Take 25 mg by mouth daily. Active diphenoxylate-a tropine (LOMOTIL) 2.5-0.025 MG Tablet Take 1 Tab by mouth 4 times daily as needed for Diarrhea. Active fluticasone (FLOVENT DISKUS) 50 MCG/BLIST AEROSOL POWDER, BREATH ACTIVATED take 1-2 Puffs by inhalation daily. Active gabapentin (NEURONTIN) 600 MG Tablet Take 1,200 mg by mouth 3 times daily. Active hyoscyamine (LEVSIN SL) 0.125 MG SL Tablet 125 mcg by Sublingual route every 6 hours as needed for Cramping. Active ammonium lactate (LAC-HYDRIN) 12 % Cream Apply 1 Applicator as needed (itchy dry skin). Active lovastatin (MEVACOR) 20 MG Tablet Take 20 mg by mouth every evening. Active pirbuterol (MAXAIR AUTOHALER) 200 MCG/INH AEROSOL, BREATH ACTIVATED take 2 Puffs by inhalation 2 times daily as needed (Asthma). Active Multiple Vitamins-Minera ls (MULTIVITAMIN PO) Take 1 Tab by mouth Daily. Active psyllium (METAMUCIL) 58.6 % Pack Take 1 Packet by mouth daily. Active Ascorbic Acid 500 MG Capsule Take 1 Tab by mouth daily. Active aspirin 325 MG Tablet Take 325 mg by mouth Twice daily. Active ferrous sulfate 325 (65 Fe) MG Tablet Take 325 mg by mouth daily. Active oxyCODONE-aceta minophen (PERCOCET) 5-325 MG Tablet Take 2 Tabs by mouth every 6 hours as needed for Pain. Active beclomethasone (QVAR) 80 MCG/ACT Aerosol Solution take 2 Puffs by inhalation 2 times daily. Active Calcium-Magnesi um-Vitamin D (CALCIUM MAGNESIUM PO) Take 1 Tab by mouth 3 times daily. Active Cetirizine HCl 10 MG Capsule Take 1 Tab by mouth Daily. Active celecoxib (CELEBREX) 200 MG CapsuleIndicati ons:Osteoarthri tis Take 200 mg by mouth 2 times daily as needed for Pain. Indications: Joint Damage causing Pain and Loss of Function Active promethazine (PHENERGAN) 25 MG Tablet Take 25 mg by mouth every 8 hours as needed for Nausea. Active furosemide (LASIX) 80 MG Tablet Take 40 mg by mouth daily. Active fluticasone (FLONASE ALLERGY RELIEF) 50 MCG/ACT Suspension 2 Sprays by Nasal route daily. Active potassium chloride (KLOR-CON) 20 MEQ Pack Take 20 mEq by mouth daily. Active Social History Tobacco Use Types Packs/Day Years Used Date Smoking Tobacco: Never Assessed Comments Unknown Sex and Gender Information Value Date Recorded Sex Assigned at Not on file Legal Sex Female 9:36 PM CDT Gender Identity Not on file Sexual Orientation Not on file Last Filed Vital Signs Vital Sign Reading Time Taken Comments Blood Pressure 160/94 04/07/2017 11:20 AM CDT Pulse 80 04/07/2017 11:20 AM CDT Temperature 36.6 ??C (97.9 ??F) 04/07/2017 11:20 AM C DT Respiratory Rate 16 04/07/2017 11:20 AM CDT Oxygen Saturation 99% 04/07/2017 11:20 AM CDT Inhaled Oxygen Concentration - - Weight 123.8 kg (273 lb) 03/11/2017 12:34 PM CDT Height 179.1 cm (5' 10.5 ) 02/20/2017 12:29 PM C DT Body Mass Index 38.62 02/20/2017 12:29 PM CDT Plan of Treatment Not on file Advance Directives * Full Code (Latest Code Status on File) Date Activated Date Inactivated Comments 02/23/2017 2:12 PM Care Teams Care Coordinator Relationship Specialty Start Date End Date Giacomo Wong MD [address] [place] [address] PCP - General Family Medicine 12/01/16
--- OUTSIDE RECORDS SUMMARY | 2024-08-17 12:43 | XMS_ITS | Referral Summary ---
Author Organization [facility] al Address [address] [place] [address] Care Team Providers Care Technical Assistant Name Role Phone Giacomo Wong MD Primary Care Prov ider Lexi Tyler MD Unavailable [phone] Terra Andre MD PhD Unavailable [phone] Encounters Date Type Department Care Team Description 08/11/2024 9:26 AM WEBMETHODS CONSULTANT - 08/11/2024 11:59 PM WEBMETHODS CONSULTANT Hospital Encounter 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, subsequent encounter; Fibrosarcoma (HCC) 08/01/2024 1:45 PM WEBMETHODS CONSULTANT Office Visit [facility] Orthopedics and Sports Medicine [address] [facility] [address] [place] [address] Apurva Moreno PA Bilateral primary osteoarthritis of knee (Primary Dx) 07/23/2024 Telephone [facility] Orthopaedic Surgery [address] [facility] 6th [place] [address] [place] [address] Dayo Landry MD Apt Time Delay- Weather 07/21/2024 Orders Only [facility] Orthopaedic Surgery [facility] 6th [place] [address] [place] [address] Dayo Landry MD Fibrosarcoma (HCC) (Primary Dx) 06/19/2024 4:54 PM WEBMETHODS CONSULTANT - 06/19/2024 9:58 PM WEBMETHODS CONSULTANT Emergency [facility] Emergency Department [address] [place] [address] Raheem Thomson MD Knee effusion, left (Primary Dx); Fall on same level from tripping; Abrasion; Other closed fracture of shaft of left humerus, initial encounter Discharge Disposition: Discharge to home or self care 06/19/2024 Telephone [facility] Cardiology [address] [place] [address] 8th [place] [address] [place] [address] Thang Emery MD PhD 06/19/2024 11:15 AM WEBMETHODS CONSULTANT Office Visit [facility] Cardiology [address] [place] [address] 8th [place] [address] [place] [address] Thang Emery MD PhD Adjustment and management of cardiac pacemaker (Primary Dx); Sick sinus syndrome (CMS/HCC) (HCC); Primary hypertension 06/19/2024 10:45 AM WEBMETHODS CONSULTANT Ancillary Procedure [facility] Cardiology [address] [place] [address] 8th [place] [address] [place] [address] Sick sinus syndrome (CMS/HCC) (HCC); Adjustment and management of cardiac pacemaker 06/06/2024 Orders Only [facility] Gastroenterology [address] [place] [address] 12th [place] [address] [place] [address] Elio Gresham MD 06/06/2024 11:45 AM WEBMETHODS CONSULTANT - 06/06/2024 12:30 PM WEBMETHODS CONSULTANT Surgery [facility] [place] [address] [facility] [address] [place] [address] Elio Gresham MD COLON MUCOSAL RESECTION 06/06/2024 12:12 PM WEBMETHODS CONSULTANT Anesthesia Event [facility] [place] [address] [address] Karol Arguello MD Frasca, Elizabeth Renee, HANSA 06/06/2024 11:12 AM WEBMETHODS CONSULTANT - 06/06/2024 2:37 PM WEBMETHODS CONSULTANT Hospital Encounter [facility] [place] [id number] [place] [address] [address] Elio Gresham MD HNPCC (hereditary nonpolyposis colon cancer) Discharge Disposition: Discharge to home or self care 06/02/2024 Orders Only [facility] Cardiology [facility] Medical Office Building [address] [place] [address] Thang Emery MD PhD 06/02/2024 Telephone [facility] Cardiology [address] [place] [address] 8th [place] [address] [place] [address] Thang Emery MD PhD 06/01/2024 Telephone [facility] Specialty Services [address] [place] [address] Anai Thurman RN GI PROCEDURE 3 DAY PRE CALL 05/30/2024 Telephone [facility] Specialty Services [address] [place] [phone] Anai Thurman, MEG GI PROCEDURE 7 DAY PRE CALL 05/23/2024 Orders Only [facility] Gastroenterology [address] [place] [address] 12th [place] [address] [place] [address] Gisselle Valentin HNPCC (hereditary nonpolyposis colon cancer) (Primary Dx) from Last 3 Months Allergies Active Allergy Reactions Criticality Noted Date Comments Adhesive Rash Medium Adhesive Tape-Silicones Rash Medium Latex Shortness of breath,Rash High 09/13/2012 Morphine Nausea And Vomiting Low 05/27/2010 Nickel Rash Medium 06/27/2013 Opioids - Morphine Analogues Nausea & Vomiting Low Silver Rash Medium Unclassified Drug Rash Medium Steri strips Vinyl Ether Hives Medium Medications psyllium, aspartame, SF (METAMUCIL SF) 3.4 gram packetIndications: constipation,regul arity Take 1 packet by mouth every morning Active diphenoxylate-atro pine (LOMOTIL) 2.5-0.025 mg per tabletIndications: diarrhea Take 1 tablet by mouth 4 (four) times a day as needed for diarrhea Active hyoscyamine (LEVSIN) 0.125 mg SL tabletIndications: abdominal spasms Place 1 tablet (0.125 mg total) under the tongue as needed for cramping Active KERYDIN 5 % solution with applicatorIndicati ons:toenail onychomycosis Apply 1 application (deactivated) topically daily as needed 08/14/19 20 Active MULTIVITAMIN ORALIndications:cedillo pplement Take 1 tablet by mouth every morning Active ondansetron (ZOFRAN) 8 mg tabletIndications: nausea Take 1 tablet (8 mg total) by mouth every 8 (eight) hours as needed for nausea or vomiting Active atorvastatin (LIPITOR) 20 mg tabletIndications: hyperlipidemia Take 1 tablet (20 mg total) by mouth daily before dinner 07/23/19 21 Active metoprolol XL (TOPROL-XL) 50 mg extended release tabletIndications: hypertension Take 1 tablet (50 mg total) by mouth every morning 11/12/19 23 Active albuterol HFA (PROVENTIL HFA,VENTOLIN HFA,PROAIR HFA) 90 mcg/actuation inhalerIndications :Acute Asthma Attack Inhale 2 puffs every 6 (six) hours as needed for wheezing Active calcium citrate-vitamin D3 200 mg-6.25 mcg (250 unit) tabletIndications: Hypocalcemia Prevention,Prevent ion of Vitamin D Deficiency Take 1 tablet by mouth 2 (two) times a day 12/26/19 23 Active cholecalciferol 25 mcg (1,000 unit) tabletIndications: Vitamin D Deficiency Take 1 tablet (1,000 Units total) by mouth 2 (two) times a day Active fluticasone propionate (FLONASE) 50 mcg/actuation nasal sprayIndications:A llergic Rhinitis Administer 2 sprays into each nostril every morning Active oxyCODONE (ROXICODONE) 5 mg immediate release tabletIndications: Pain Take 1 tablet (5 mg total) by mouth every 4 (four) hours as needed for pain 42 tablet 11/26/19 24 Active levothyroxine (SYNTHROID) 50 mcg tabletIndications: Hyperparathyroidis m (HCC),Postoperativ e hypothyroidism TAKE 1 TABLET BY MOUTH EARLY IN THE MORNING BEFORE BREAKFAST 90 tablet 05/23/20 24 Active fluticasone furoate (ARNUITY) 100 mcg/actuation inhaler 03/11/20 24 Active oxyCODONE (ROXICODONE) 5 mg immediate release tabletIndications: Pain Take 1 tablet (5 mg total) by mouth every 4 (four) hours as needed for pain 12 tablet 06/19/20 24 Active cephalexin (KEFLEX) 500 mg capsule Take 1 capsule (500 mg total) by mouth 2 (two) times a day for 10 days 20 capsule 08/01/19 25 025 Hospital, Clinic, or Other Facility Administered Medication Ordered Dose Route Frequency Start Date End Date Status lidocaine (XYLOCAINE) 20 mg/mL (2 %) injection 3 mLIndications:Admini stration of Local Anesthesia 3 mL One-Time Injection 08/01/2024 5 Ended lidocaine (XYLOCAINE) 20 mg/mL (2 %) injection 3 mLIndications:Admini stration of Local Anesthesia 3 mL One-Time Injection 08/01/2024 5 Ended methylPREDNISolone acetate (DEPO-medrol) injection 80 mgIndications:Bilate ral primary osteoarthritis of knee 80 mg intra-artic One-Time Injection 08/01/2024 5 Ended methylPREDNISolone acetate (DEPO-medrol) injection 80 mgIndications:Bilate ral primary osteoarthritis of knee 80 mg intra-artic One-Time Injection 08/01/2024 5 Ended Active Problems Problem Noted Date Diagnosed Date [...] (02/11/2022): Added automatically from request for surgery [id number] Assessment & Plan (02/24/2022 12:11 PM CDT): Orthopedic surgery is following. Case discussed in detail with ENVIRONMENTAL AIR SPECIALIST. Drain still in place- to remain until office follow up, keep on doxy. VTE ppx witb bid asa 81 Pain control with gabapentin and PRN oxycodone 5 mg Q4 hours, bowel regimen Assessment & Plan (02/23/2022 4:50 PM CDT): Orthopedic surgery is following. Case discussed in detail with ENVIRONMENTAL AIR SPECIALIST. Drain still in place- to remain until office follow up, keep on doxy. 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 Overview (04/01/2020): Added automatically from request for surgery [id number] HNPCC (hereditary nonpolyposis colon cancer) 04/2018 Overview (03/28/2018): Added automatically from request for surgery [id number] History of total hip replacement 04/16/2017 Primary [...] of 40.0 to 44.9 in adult 10/25/2008 Resolved Problems Problem Noted Date Diagnosed Date Resolved Date thy 08/12/2021 03/17/2022 Knee pain 07/16/2016 02/18/2018 Urinary tract infection 09/24/2014 08/0 09/2017 Abdominal pain 08/08/2014 02/18/2018 Chest pain 12/23/2011 02/18/2018 Immunizations Name Administration Dates Next Due Influenza, Quadrivalent, Hig h Dose, Preservative Free, Intrr 05/19/2022,05/03/2020 Influenza, Trivalent, High D ose, Split, Preservative Free, Intramuscular 05/22/2019 Influenza, Trivalent, IM (MDV) 04/18/2013 Influenza, Trivalent, Preser vative Free, Intramuscular 04/27/2016,05/29/2015 Moderna SARS-CoV-2 Monovalen t Vaccination (12+ YRS) 10/01/2020,09/18/2020,08/21/2020 Tdap 01/29/2015 ZOSTER LIVE 06/14/2016 Social History Tobacco Use Types Packs/Day Years Used Date Smoking Tobacco: Former Cigarettes 0.8 7 1 971 - 1977 Passive Smoke Exposure: Past Smokeless Tobacco: Never Tobacco Cessation:Counseling Given: Not Answered Alcohol Use Standard Drinks/Week Comments No 0 (1 standard drink = 0.6 oz pur e alcohol) AUDIT-C Answer Date Recorded Q1: How often do you have a drink containing alcohol? Never 06/06/2024 Q2: How many drinks containi ng alcohol do you have on a typical day when you are drinking? Patient does not drink Q3: How often do you have si x or more drinks on one occasion? Never 06/06/2024 Personal Safety Answer Date Recorded Have you ever been in or are you currently in a harmful physical or emotional relationship or is someone making you feel afraid or unsafe? Denies 06/19/2024 Comments No Sex and Gender Information Value Date Recorded Sex Assigned at Not on file Legal Sex Female 7:49 PM WEBMETHODS CONSULTANT Gender Identity Female 04/07/2021 9:20 AM CDT Sexual Orientation Straight 08/16/2020 10 :27 PM WEBMETHODS CONSULTANT Last Filed Vital Signs Vital Sign Reading Time Taken Comments Blood Pressure 131/76 08/01/2024 2:01 PM WEBMETHODS CONSULTANT Pulse 83 08/01/2024 2:01 PM WEBMETHODS CONSULTANT Temperature 36.4 ??C (97.6 ??F) 06/19/2024 2:45 PM CS T Respiratory Rate 18 06/19/2024 4:42 PM WEBMETHODS CONSULTANT Oxygen Saturation 98% 06/19/2024 4:42 PM WEBMETHODS CONSULTANT Inhaled Oxygen Concentration - - Weight 136.6 kg (301 lb 3.2 oz) 08/01/2024 2:01 PM WEBMETHODS CONSULTANT Height 180.3 cm (5' 11 ) 08/01/2024 2:01 PM WEBMETHODS CONSULTANT Body Mass Index 42.01 08/01/2024 2:01 PM WEBMETHODS CONSULTANT Plan of Treatment Not on file Medical Devices Implanted Type Area Extruder Operator Device Identifier Shelf Expiration Date Model / Serial / Lot Allosource Freeze Dried Chips 1-10mm Graft 15ml Bone Cancellous [id number] - [id number] - [id number] Implanted:Qty: 1 on 11/12/2023 by Dayo Landry MD at [facility] Bone Left: Humerus Allosource 12/29/2027 [id number] / [id number] / [id number] Synthes Nail 8.5mm 9.5mm 270mm Humrl Left Multiloc Im Long Str 04.019.270s - [id number] Implanted:Qty: 1 on 11/12/2023 by Dayo Landry MD at [facility] Nail Left: Humerus Synthes I 12/16/2025 04.019.27 0S / / [id number] Synthes Plate 205mm Bone Stainless Steel 13 Hole Variable Angle Rnd 02.117.313s - S0 - [id number] Implanted:Qty: 1 on 02/18/2022 by Dayo Landry MD at [facility] Other - see comments Left: Humerus Synthes I 04/17/2031 02.117.31 3S / 0 / [id number] Pacemaker Pacemaker Left: Heart Synthes Multiloc 4.5mm 3.9mm 38mm Blunt Tip Self Cut Suture Hole 04.019.038s - [id number] Implanted:Qty: 1 on 11/12/2023 by Dayo Landry MD at [facility] Screw Left: Humerus Synthes I 04.019.03 8S / / Synthes Multiloc 4.5mm 28mm Blunt Tip Self Cut Suture Hole Countersink 04.019.028s - [id number] Implanted:Qty: 1 on 11/12/2023 by Dayo Landry MD at [facility] Screw Left: Humerus Synthes I 04.019.02 8S / / Synthes 4mm 3.3mm 30mm Lock Self Tap Blunt Tip 2 Lead Tibial T25 Full 04.005.420s - [id number] Implanted:Qty: 1 on 11/12/2023 by Dayo Landry MD at [facility] Screw Left: Humerus Synthes I 04.005.42 0S / / Synthes 4mm 3.3mm 24mm Lock Self Tap Blunt Tip 2 Lead Tibial T25 Full 04.005.414s - [id number] Implanted:Qty: 1 on 11/12/2023 by Dayo Landry MD at [facility] Screw Left: Humerus Synthes I 04.005.41 4S / / Synthes 4mm 3.3mm 28mm Lock Self Tap Blunt Tip 2 Lead Tibial T25 Full 04.005.418s - [id number] Implanted:Qty: 1 on 11/12/2023 by Dayo Landry MD at [facility] Screw Left: Humerus Synthes I 04.005.41 8S / / Synthes 4.5mm 8mm 32mm Self Tap Large Hexagonal Socket Cortex Screw Bone 214.832 - [id number] Implanted:Qty: 2 on 02/18/2022 by Dayo Landry MD at [facility] Left: Humerus Synthes I 214.832 / / Synthes 3.5mm 2.9mm 24mm Self Tap Lock Stardrive Conical Head Pelvis T15 212.108 - [id number] Implanted:Qty: 1 on 02/18/2022 by Dayo Landry MD at [facility] Left: Humerus Synthes I 212.108 / / Synthes 3.5mm 2.9mm 28mm Self Tap Lock Stardrive Conical Head T15 Full 212.110 - [id number] Implanted:Qty: 1 on 02/18/2022 by Dayo Landry MD at [facility] Left: Humerus Synthes I 212.110 / / Synthes 3.5mm 2.9mm 30mm Self Tap Lock Stardrive Conical Head T15 Full 212.111 - [id number] Implanted:Qty: 1 on 02/18/2022 by Dayo Landry MD at [facility] Left: Humerus Synthes I 212.111 / / Synthes Norian Drillable Fast Set Putty Filler 5cc Bone Void Calcium 07.704.105s - [id number] Implanted:Qty: 1 on 02/18/2022 by Dayo Landry MD at [facility] Left: Humerus Synthes I 09/15/2022 07.704.10 5S / / Synthes Lcp Combi 230mm 10 Hole Precontour Limit Contact Taper Head 02.104.030 - [id number] Implanted:Qty: 1 on 02/18/2022 by Dayo Landry MD at [facility] Left: Humerus Synthes I 02.104.03 0 / / Synthes 3.5mm 6mm 22mm 2.5mm Self Tap Small Hexagonal Socket Low Profile 204.822 - [id number] Implanted:Qty: 3 on 02/18/2022 by Dayo Landry MD at [facility] Left: Humerus Synthes I 204.822 / / Synthes 3.5mm 6mm 24mm 2.5mm Self Tap Small Hexagonal Socket Low Profile 204.824 - [id number] Implanted:Qty: 3 on 02/18/2022 by Dayo Landry MD at [facility] Left: Humerus Synthes I 204.824 / / Synthes Lcp Combi 152x13.5x4.2mm 8 Hole Limit Contact Taper End Narrow 224.581 - [id number] Implanted:Qty: 1 on 02/18/2022 by Dayo Landry MD at [facility] Left: Humerus Synthes I 224.581 / / Synthes 4.5mm 8mm 26mm Self Tap Large Hexagonal Socket Cortex Screw Bone 214.826 - [id number] Implanted:Qty: 2 on 02/18/2022 by Dayo Landry MD at [facility] Left: Humerus Synthes I 214.826 / / Synthes 4.5mm 8mm 28mm Self Tap Large Hexagonal Socket Cortex Screw Bone 214.828 - [id number] Implanted:Qty: 1 on 02/18/2022 by Dayo Landry MD at [facility] Left: Humerus Synthes I 214.828 / / Synthes Washer 29/01 04.045.780s - [id number] Implanted:Qty: 1 on 11/12/2023 by Dayo Landry MD at [facility] Left: Humerus Synthes I 04.045.78 0S / / Musculoskeletal Transplant Allograft Putty Freeze Dried Filler 10cc Bone Void Dbx 274884 - [id number] - [id number] Implanted:Qty: 1 on 11/12/2023 by Dayo Landry MD at [facility] Left: Humerus Musculoskeletal Transplant 05/08/2025 [id number] / [id number] / Procedures Procedure Name Priority Date/Time Associated Diagnosis Comments XR HUMERUS LEFT 2 OR MORE VIEWS Routine 08/11/2024 9:40 AM WEBMETHODS CONSULTANT Fibrosarcoma (HCC) [place] ARTHROCENTESIS ASPIR&/INJ MAJOR JT/BURSA W/O US Routine 08/01/2024 1:45 PM WEBMETHODS CONSULTANT Bilateral primary osteoarthritis of knee WA ARTHROCENTESIS ASPIR&/INJ MAJOR JT/BURSA W/O US Routine 08/01/2024 1:45 PM WEBMETHODS CONSULTANT Bilateral primary osteoarthritis of knee DIFFERENTIAL AUTO STAT 06/19/2024 8:5 4 PM WEBMETHODS CONSULTANT CBC WITH AUTO DIFFERENTIAL STAT 06/19/2024 8:54 PM WEBMETHODS CONSULTANT XR HUMERUS LEFT 2 OR MORE VIEWS ED 06/19/2024 8:23 PM WEBMETHODS CONSULTANT XR SHOULDER LEFT 2 OR MORE VIEWS ED 06/19/2024 8:08 PM WEBMETHODS CONSULTANT EGFR STAT 06/19/2024 7:08 PM WEBMETHODS CONSULTANT CRP (ACUTE PHASE) STAT 06/19/2024 7:0 8 PM WEBMETHODS CONSULTANT BASIC METABOLIC PANEL STAT 06/19/2024 7:08 PM WEBMETHODS CONSULTANT XR HAND RIGHT 3 OR MORE VIEWS ED 06/19/2024 5:49 PM WEBMETHODS CONSULTANT XR TIBIA FIBULA LEFT 2 VIEWS ED 06/19/2024 5:49 PM WEBMETHODS CONSULTANT XR KNEE LEFT 4 OR MORE VIEWS ED 06/19/2024 3:33 PM WEBMETHODS CONSULTANT XR HUMERUS LEFT 2 OR MORE VIEWS ED 06/19/2024 3:33 PM WEBMETHODS CONSULTANT XR ELBOW LEFT 2 OR MORE VIEWS ED 06/19/2024 3:32 PM WEBMETHODS CONSULTANT SURGICAL PATHOLOGY Routine 06/06/2024 12:26 PM WEBMETHODS CONSULTANT ENDO ADD ON COLON BIOPSY 06/06/2024 12:12 PM WEBMETHODS CONSULTANT HNPCC (hereditary nonpolyposis colon cancer) ENDO ADD ON COLON REMOVAL SNARE 06/06/2024 12:12 PM WEBMETHODS CONSULTANT HNPCC (hereditary nonpolyposis colon cancer) COLON MUCOSAL RESECTION 06/06/2024 12:12 PM WEBMETHODS CONSULTANT HNPCC (hereditary nonpolyposis colon cancer) COLONOSCOPY 06/06/2024 12:04 PM WEBMETHODS CONSULTANT DEVICE CHECK - REMOTE Routine 06/02/2024 3:49 PM WEBMETHODS CONSULTANT SCREENING MAMMOGRAM BILATERAL W SUKHDEV Schedule Routine, Read Routine (OP Routine) 10/11/2023 11:29 AM CDT Screening mammogram, encounter for HEPATITIS C ANTIBODY STAT 03/01/2023 12:15 PM CDT DEXA AXIAL AND FOREARM BONE DENSITY SCAN Schedule Routine, Read Routine (OP Routine) 09/10/2021 10:28 AM WEBMETHODS CONSULTANT Hypercalcemia Elevated PTHrP level Other osteoporosis, unspecified pathological fracture presence from Last 3 Months or Most Recently Relevant to Health Maintenance Results * XR Humerus Left 2 or More Views (08/11/2024 9:40 AM WEBMETHODS CONSULTANT) Anatomical Region Laterality Modality Upper Extremities, Upper Arm Left Com puted Radiography 08/11/2024 9:55 AM WEBMETHODS CONSULTANT Impressions 08/11/2024 9:55 AM WEBMETHODS CONSULTANT 1. 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 Electronically signed by: María Waethers MD Narrative 08/11/2024 9:55 AM WEBMETHODS CONSULTANT EXAMINATION: XR HUMERUS LEFT 2 OR MORE VIEWS HISTORY: ??Arm pain. FINDINGS: Comparison to 06/19/2024. Redemonstrated is a revision, nailed left humerus nonunion repair with progressive hardware failure including new fracture of the 2nd distal screw. ??There is progressive osteolysis about the nail with prominent osseous resorption around the nonunion site, especially along the medial and lateral cortices of the humerus. ??Alignment is unchanged. ??Unchanged screw fragments within the soft tissues at the level of the mid humerus disuse osteopenia. Procedure Note María Weathers MD - 08/11/2024 EXAMINATION: XR HUMERUS LEFT 2 OR MORE VIEWS HISTORY: Arm pain. FINDINGS: Comparison to 06/19/2024. Redemonstrated is a revision, nailed left humerus nonunion repair with progressive hardware failure including new fracture of the 2nd distal screw. There is progressive osteolysis about the nail with prominent osseous resorption around the nonunion site, especially along the medial and lateral cortices of the humerus. Alignment is unchanged. Unchanged screw fragments within the soft tissues at the level of the mid humerus disuse osteopenia. IMPRESSION: 1. 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 Electronically signed by: María Weathers MD Dayo Aldo Lao MD IMG XR PROCEDURES Final Re sult * WA ARTHROCENTESIS ASPIR&/INJ MAJOR JT/BURSA W/O US (08/01/2024 1:45 PM WEBMETHODS CONSULTANT) Narrative Abel Valdovinos MD - 08/01/2024 1:45 PM WEBMETHODS CONSULTANT Apurva Moreno PA ? 08/01/2024 ??2:27 PM Large Joint (Hip, Knee, Shoulder) Injection: L knee Performed by: Apurva Moreno PA Authorized by: Apurva Moreno PA ?? Large Joint Injection/Aspiration: ??Consent Given by: ??Patient ??Site marked: the procedure site was marked ?Timeout: prior to procedure the correct patient, procedure, and site was verified ?Verbal consent obtained: Yes ?? Supporting Documentation: ??Indications: ??Pain Procedure Details: ??Location: ??Knee ??Site: ??L knee ??Needle Size: ??22 G ??Approach: ??Anterolateral ??Ultrasound guided: No ?Fluroscopic guidance: No ?Medications: ??80 mg methylPREDNISolone acetate 80 mg/mL; 3 mL lidocaine 20 mg/mL (2 %) ??Patient tolerance: ??Patient tolerated the procedure well with no immediate complications Apurva HAJI IN CLINIC/BEDSIDE ORD ERABLES Edited Result - Final * WA ARTHROCENTESIS ASPIR&/INJ MAJOR JT/BURSA W/O US (08/01/2024 1:45 PM WEBMETHODS CONSULTANT) Narrative Abel Valdovinos MD - 08/01/2024 1:45 PM WEBMETHODS CONSULTANT Apurva Moreno PA ? 08/01/2024 ??2:27 PM Large Joint (Hip, Knee, Shoulder) Injection: R knee Performed by: Apurva Moreno PA Authorized by: Apurva Moreno PA ?? Large Joint Injection/Aspiration: ??Consent Given by: ??Patient ??Site marked: the procedure site was marked ?Timeout: prior to procedure the correct patient, procedure, and site was verified ?Verbal consent obtained: Yes ?? Supporting Documentation: ??Indications: ??Pain Procedure Details: ??Location: ??Knee ??Site: ??R knee ??Needle Size: ??22 G ??Approach: ??Anterolateral ??Ultrasound guided: No ?Fluroscopic guidance: No ?Medications: ??80 mg methylPREDNISolone acetate 80 mg/mL; 3 mL lidocaine 20 mg/mL (2 %) ??Patient tolerance: ??Patient tolerated the procedure well with no immediate complications Apurva HAJI IN CLINIC/BEDSIDE ORD ERABLES Edited Result - Final * (ABNORMAL) Differential, auto (06/19/2024 8:54 PM WEBMETHODS CONSULTANT) Neutrophil abs 7.9(H) 1.5 - 6.5 K/cumm Imm gran abs 0.1 0.0 - 0.1 K/cumm [facility] Lymphocyte abs 2.1 0.8 - 3.3 K/cumm [facility] Monocyte abs 0.9(H) 0.2 - 0.8 K/cumm [facility] Eosinophil abs 0.2 0.0 - 0.5 K/cumm [facility] Basophil abs 0.1 0.0 - 0.1 K/cumm [facility] Neutrophil pct 70.8 % [facility] Comment: Interpretive Data Percent cell count reference ranges are not reported, since discordance with absolute values may lead to misinterpretation of CBC data. Current Interpretive Data was last revised on 2017. Imm gran pct 0.6 % [facility] Comment: Interpretive Data Percent cell count reference ranges are not reported, since discordance with absolute values may lead to misinterpretation of CBC data. Current Interpretive Data was last revised on 2017. Lymphocyte pct 18.5 % [facility] Comment: Interpretive Data Percent cell count reference ranges are not reported, since discordance with absolute values may lead to misinterpretation of CBC data. Current Interpretive Data was last revised on 2017. Monocyte pct 8.4 % [facility] Comment: Interpretive Data Percent cell count reference ranges are not reported, since discordance with absolute values may lead to misinterpretation of CBC data. Current Interpretive Data was last revised on 2017. Eosinophil pct 1.3 % [facility] Comment: Interpretive Data Percent cell count reference ranges are not reported, since discordance with absolute values may lead to misinterpretation of CBC data. Current Interpretive Data was last revised on 2017. Basophil pct 0.4 % [facility] Comment: Interpretive Data Percent cell count reference ranges are not reported, since discordance with absolute values may lead to misinterpretation of CBC data. Current Interpretive Data was last revised on 2017. Blood 06/19/2024 8:54 PM WEBMETHODS CONSULTANT 06/19/2024 9:04 PM WEBMETHODS CONSULTANT Raheem Thomson MD LAB BLOOD ORDERABLES Fin al Result [facility] Department [place] [address] * (ABNORMAL) CBC with auto differential (06/19/2024 8:54 PM WEBMETHODS CONSULTANT) WBC 11.2(H) 3.8 - 9.9 K/cumm Hgb 13.5 11.9 - 15.5 g/dL [facility] Hct 41.8 35.6 - 45.5 % [facility] Plt 242 150 - 400 K/cumm [facility] MPV 9.8 9.1 - 12.3 fL [facility] RBC 4.72 3.90 - 5.20 M/cumm [facility] MCV 88.6 81.3 - 96.4 fL [facility] MCH 28.6 27.1 - 33.3 pg [facility] MCHC 32.3 32.3 - 35.7 g/dL [facility] RDW CV 14.5 11.1 - 14.9 % [facility] RDW SD 46.7 35.7 - 48.1 fL [facility] NRBC abs 0.02(H) 0.00 - 0.01 K/cumm [facility] Blood 06/19/2024 8:54 PM WEBMETHODS CONSULTANT 06/19/2024 9:04 PM WEBMETHODS CONSULTANT Raheem Thomson MD LAB BLOOD ORDERABLES Fin al Result [facility] Department [place] [address] * XR Humerus Left 2 or More Views (06/19/2024 8:23 PM WEBMETHODS CONSULTANT) Anatomical Region Laterality Modality Upper Extremities, Upper Arm Left Com puted Radiography 06/19/2024 8:40 PM WEBMETHODS CONSULTANT Impressions 06/19/2024 8:58 PM WEBMETHODS CONSULTANT 2 radiographs of the left humerus are submitted for interpretation. Unchanged comminuted internally fixated left humeral midshaft fracture. ??Unchanged fracture of the distal most intramedullary nail screw. There are unchanged retained screw fragments within the left upper extremity soft tissues. Dictated by: Solomon Silva MD The radiology attending physician has personally reviewed this study, and had reviewed and/or edited this written report and agrees with it. Electronically signed by: Yue Palafox M.D. Narrative 06/19/2024 8:58 PM WEBMETHODS CONSULTANT EXAMINATION: XR HUMERUS LEFT 2 OR MORE VIEWS HISTORY: Fall, prior left humeral fracture status post fixation in October 2023. COMPARISON: Left shoulder radiographs 06/19/2024 6:40 PM Procedure Note Yue Palafox MD - 06/19/2024 EXAMINATION: XR HUMERUS LEFT 2 OR MORE VIEWS HISTORY: Fall, prior left humeral fracture status post fixation in October 2023. COMPARISON: Left shoulder radiographs 06/19/2024 6:40 PM IMPRESSION: 2 radiographs of the left humerus are submitted for interpretation. Unchanged comminuted internally fixated left humeral midshaft fracture. Unchanged fracture of the distal most intramedullary nail screw. There are unchanged retained screw fragments within the left upper extremity soft tissues. Dictated by: Solomon Silva MD The radiology attending physician has personally reviewed this study, and had reviewed and/or edited this written report and agrees with it. Electronically signed by: Yue Palafox M.D. Raheem Thomson MD IMG XR PROCEDURES Final Result * XR Shoulder Left 2+ views (06/19/2024 8:08 PM WEBMETHODS CONSULTANT) Anatomical Region Laterality Modality Upper Extremities, Shoulder Left Comp uted Radiography 06/19/2024 8:16 PM WEBMETHODS CONSULTANT Impressions 06/19/2024 8:46 PM WEBMETHODS CONSULTANT Unchanged appearance of comminuted internally fixated left humeral midshaft fracture with intramedullary nail and associated screws. ??No acute proximal humerus fracture identified. Normal glenohumeral alignment. ??Mild acromioclavicular joint osteoarthritis. ?? Partially imaged pacer leads project over the left upper chest. ??The imaged left lung is clear. Dictated by: Marla Briones MD The radiology attending physician has personally reviewed this study, and had reviewed and/or edited this written report and agrees with it. Electronically signed by: Yue Palafox M.D. Narrative 06/19/2024 8:46 PM WEBMETHODS CONSULTANT EXAMINATION: XR SHOULDER LEFT 2 OR MORE VIEWS HISTORY: 69-year-old woman who presents after a fall. ??Prior left humeral fracture status post fixation in October 2023. COMPARISON: Left humerus radiographs 06/19/2024 at 3:16 PM. Procedure Note Yue Palafox MD - 06/19/2024 EXAMINATION: XR SHOULDER LEFT 2 OR MORE VIEWS HISTORY: 69-year-old woman who presents after a fall. Prior left humeral fracture status post fixation in October 2023. COMPARISON: Left humerus radiographs 06/19/2024 at 3:16 PM. IMPRESSION: Unchanged appearance of comminuted internally fixated left humeral midshaft fracture with intramedullary nail and associated screws. No acute proximal humerus fracture identified. Normal glenohumeral alignment. Mild acromioclavicular joint osteoarthritis. Partially imaged pacer leads project over the left upper chest. The imaged left lung is clear. Dictated by: Marla Briones MD The radiology attending physician has personally reviewed this study, and had reviewed and/or edited this written report and agrees with it. Electronically signed by: Yue Palafox M.D. us Raheem Thomson MD IMG XR PROCEDURES Final Result * eGFR (06/19/2024 7:08 PM WEBMETHODS CONSULTANT) eGFR 85 >=60 mL/min/1. 73 m2 Comment: Interpretive Data Reference Interval Normal ?>/= 90 mL/min/1.73m2 Mildly decreased* ? 60 - 89 mL/min/1.73m2 Mildly to moderately decreased ?45 - 59 mL/min/1.73m2 Moderately to severely decreased ??30 - 44 mL/min/1.73m2 Severely decreased ?15 - 29 mL/min/1.73m2 Kidney Failure ?< 15 ??mL/min/1.73m2 *Relative to young adult level Estimated glomerular filtration rate is determined by the 2020 CKD-EPI equation recommended by the National [employer] (A Unifying Approach to GFR Estimation: Recommendations of the NKF-ASK Task Force on Reassessing the Inclusion of Race in Diagnosing Kidney Disease, JASN 2020). The CKD-EPI equation should not be used for patients with unstable renal function and has not been validated in children and those over 70. Current interpretive data was last reviewed 2021. Blood 06/19/2024 7:08 PM WEBMETHODS CONSULTANT 06/19/2024 7:18 PM WEBMETHODS CONSULTANT us Raheem Thomson MD LAB BLOOD ORDERABLES Fin al Result [facility] Department [place] [address] * CRP (acute phase) (06/19/2024 7:08 PM WEBMETHODS CONSULTANT) CRP 0.8 <=10.0 mg/L Blood 06/19/2024 7:08 PM WEBMETHODS CONSULTANT 06/19/2024 7:18 PM WEBMETHODS CONSULTANT Raheem Thomson MD LAB BLOOD ORDERABLES Fin al Result Performing Organization Address [facility]/ZIP Co de Phone Number [facility] Department [place] [address] * (ABNORMAL) Basic metabolic panel (06/19/2024 7:08 PM WEBMETHODS CONSULTANT) Sodium 137 135 - 145 mmol/L Potassium, pl 5.0(H) 3.3 - 4.9 mmol/L [facility] Comment:Hemolyzed; Potassium value may be falsely elevated by as much as 1.1-1.6 mmol/L. Suggest redraw and reanalysis. Chloride 102 97 - 110 mmol/L [facility] CO2 22 22 - 32 mmol/L [facility] Anion gap 13 2 - 15 mmol/L [facility] BUN 25 6 - 25 mg/dL [facility] Creatinine 0.75 0.60 - 1.10 mg/dL [facility] Glucose 101 70 - 199 mg/dL [facility] Comment: Interpretive Data Fasting glucose >/= 126 mg/dl is diagnostic for diabetes. ?? Fasting is defined as no caloric intake for at least 8 hours. Fasting glucose between 100 mg/dl to 125 mg/dl is diagnostic of prediabetes. In a patient with classic symptoms of hyperglycemia or hyperglycemic crisis, a random glucose >/= 200 mg/dl is diagnostic for diabetes. In the absence of unequivocal hyperglycemia, results should be confirmed by repeat testing. The classification and Diagnosis of Diabetes Diabetes Care 202; 46: S19-S40. Current interpretive data was last revised 2022. Calcium 9.0 8.5 - 10.3 mg/dL [facility] Blood 06/19/2024 7:08 PM WEBMETHODS CONSULTANT 06/19/2024 7:18 PM WEBMETHODS CONSULTANT Raheem Thomson MD LAB BLOOD ORDERABLES Fin al Result Performing Organization Address [facility] Co de Phone Number [facility] Department [place] [address] * XR Hand Right 3+ views (06/19/2024 5:49 PM WEBMETHODS CONSULTANT) Anatomical Region Laterality Modality Upper Extremities, Hand Right Computed Radiography 06/19/2024 6:12 PM WEBMETHODS CONSULTANT Impressions 06/19/2024 6:44 PM WEBMETHODS CONSULTANT Left tibia and fibula: No acute fracture. There is diffuse soft tissue swelling of the imaged left lower extremity. Right hand: No acute fracture or dislocation. Alignment is normal. Unchanged cystic changes within the ulnar styloid process, which can be seen in the setting of inflammatory arthritis. Dictated by: Solomon Silva MD The radiology attending physician has personally reviewed this study, and had reviewed and/or edited this written report and agrees with it. Electronically signed by: Yue Palafox M.D. Narrative 06/19/2024 6:44 PM WEBMETHODS CONSULTANT EXAMINATION: XR TIBIA FIBULA LEFT 2 VIEWS, XR HAND RIGHT 3 OR MORE VIEWS HISTORY: Fall COMPARISON: Knee radiographs 03/05/2023, right hand radiographs 01/27/2022 Procedure Note Yue Palafox MD - 06/19/2024 EXAMINATION: XR TIBIA FIBULA LEFT 2 VIEWS, XR HAND RIGHT 3 OR MORE VIEWS HISTORY: Fall COMPARISON: Knee radiographs 03/05/2023, right hand radiographs 01/27/2022 IMPRESSION: Left tibia and fibula: No acute fracture. There is diffuse soft tissue swelling of the imaged left lower extremity. Right hand: No acute fracture or dislocation. Alignment is normal. Unchanged cystic changes within the ulnar styloid process, which can be seen in the setting of inflammatory arthritis. Dictated by: Solomon Silva MD The radiology attending physician has personally reviewed this study, and had reviewed and/or edited this written report and agrees with it. Electronically signed by: Yue Palafox M.D. Raheem Thomson MD IMG XR PROCEDURES Final Result * XR Tibia Fibula Left 2 views (06/19/2024 5:49 PM WEBMETHODS CONSULTANT) Anatomical Region Laterality Modality Lower Extremities, Lower Leg Left Com puted Radiography 06/19/2024 6:12 PM WEBMETHODS CONSULTANT Impressions 06/19/2024 6:44 PM WEBMETHODS CONSULTANT Left tibia and fibula: No acute fracture. There is diffuse soft tissue swelling of the imaged left lower extremity. Right hand: No acute fracture or dislocation. Alignment is normal. Unchanged cystic changes within the ulnar styloid process, which can be seen in the setting of inflammatory arthritis. Dictated by: Solomon Silva MD The radiology attending physician has personally reviewed this study, and had reviewed and/or edited this written report and agrees with it. Electronically signed by: Yue Palafox M.D. Narrative 06/19/2024 6:44 PM WEBMETHODS CONSULTANT EXAMINATION: XR TIBIA FIBULA LEFT 2 VIEWS, XR HAND RIGHT 3 OR MORE VIEWS HISTORY: Fall COMPARISON: Knee radiographs 03/05/2023, right hand radiographs 01/27/2022 Procedure Note Yue Palafox MD - 06/19/2024 EXAMINATION: XR TIBIA FIBULA LEFT 2 VIEWS, XR HAND RIGHT 3 OR MORE VIEWS HISTORY: Fall COMPARISON: Knee radiographs 03/05/2023, right hand radiographs 01/27/2022 IMPRESSION: Left tibia and fibula: No acute fracture. There is diffuse soft tissue swelling of the imaged left lower extremity. Right hand: No acute fracture or dislocation. Alignment is normal. Unchanged cystic changes within the ulnar styloid process, which can be seen in the setting of inflammatory arthritis. Dictated by: Solomon Silva MD The radiology attending physician has personally reviewed this study, and had reviewed and/or edited this written report and agrees with it. Electronically signed by: Yue Palafox M.D. Raheem Thomson MD IMG XR PROCEDURES Final Result * XR Knee Left 4 or More Views (06/19/2024 3:33 PM WEBMETHODS CONSULTANT) Anatomical Region Laterality Modality Lower Extremities, Knee Left Computed Radiography 06/19/2024 5:19 PM WEBMETHODS CONSULTANT Impressions 06/19/2024 6:21 PM WEBMETHODS CONSULTANT Left humerus: Left humerus intramedullary nail and associated screws are noted. Screws along the midhumeral diaphysis are external to the intramedullary nail, unchanged. New fracture of the inferiormost intramedullary nail screw. No significant interval change in alignment of a chronic left humeral diaphyseal fracture. Left elbow: No acute fracture of the elbow. The osseous alignment is normal. No elbow effusion. Left knee: No acute fracture. The osseous alignment appears normal on this nonweightbearing exam. ??There is moderate tricompartmental osteoarthritis of the left knee. A knee joint effusion is present. Soft tissue swelling along the anterior and inferior aspect of the knee. Dictated by: Noemi Pablo M.D. The radiology attending physician has personally reviewed this study, and had reviewed and/or edited this written report and agrees with it. Electronically signed by: Yue Palafox M.D. Narrative 06/19/2024 6:21 PM WEBMETHODS CONSULTANT EXAMINATION: XR ELBOW LEFT 2 VIEWS, XR HUMERUS LEFT 2 OR MORE VIEWS, XR KNEE LEFT 4 OR MORE VIEWS HISTORY: Pain, Upper Extremity Injury or Trauma Procedure Note Yue Palafox MD - 06/19/2024 EXAMINATION: XR ELBOW LEFT 2 VIEWS, XR HUMERUS LEFT 2 OR MORE VIEWS, XR KNEE LEFT 4 OR MORE VIEWS HISTORY: Pain, Upper Extremity Injury or Trauma IMPRESSION: Left humerus: Left humerus intramedullary nail and associated screws are noted. Screws along the midhumeral diaphysis are external to the intramedullary nail, unchanged. New fracture of the inferiormost intramedullary nail screw. No significant interval change in alignment of a chronic left humeral diaphyseal fracture. Left elbow: No acute fracture of the elbow. The osseous alignment is normal. No elbow effusion. Left knee: No acute fracture. The osseous alignment appears normal on this nonweightbearing exam. There is moderate tricompartmental osteoarthritis of the left knee. A knee joint effusion is present. Soft tissue swelling along the anterior and inferior aspect of the knee. Dictated by: Noemi Pablo M.D. The radiology attending physician has personally reviewed this study, and had reviewed and/or edited this written report and agrees with it. Electronically signed by: Yue Palafox M.D. Umesh Chavez MD IMG XR PROCEDURES Final Resu lt * XR Humerus Left 2 or More Views (06/19/2024 3:33 PM WEBMETHODS CONSULTANT) Anatomical Region Laterality Modality Upper Extremities, Upper Arm Left Com puted Radiography 06/19/2024 5:19 PM WEBMETHODS CONSULTANT Impressions 06/19/2024 6:21 PM WEBMETHODS CONSULTANT Left humerus: Left humerus intramedullary nail and associated screws are noted. Screws along the midhumeral diaphysis are external to the intramedullary nail, unchanged. New fracture of the inferiormost intramedullary nail screw. No significant interval change in alignment of a chronic left humeral diaphyseal fracture. Left elbow: No acute fracture of the elbow. The osseous alignment is normal. No elbow effusion. Left knee: No acute fracture. The osseous alignment appears normal on this nonweightbearing exam. ??There is moderate tricompartmental osteoarthritis of the left knee. A knee joint effusion is present. Soft tissue swelling along the anterior and inferior aspect of the knee. Dictated by: Noemi Pablo M.D. The radiology attending physician has personally reviewed this study, and had reviewed and/or edited this written report and agrees with it. Electronically signed by: Yue Palafox M.D. Narrative 06/19/2024 6:21 PM WEBMETHODS CONSULTANT EXAMINATION: XR ELBOW LEFT 2 VIEWS, XR HUMERUS LEFT 2 OR MORE VIEWS, XR KNEE LEFT 4 OR MORE VIEWS HISTORY: Pain, Upper Extremity Injury or Trauma Procedure Note Yue Palafox MD - 06/19/2024 EXAMINATION: XR ELBOW LEFT 2 VIEWS, XR HUMERUS LEFT 2 OR MORE VIEWS, XR KNEE LEFT 4 OR MORE VIEWS HISTORY: Pain, Upper Extremity Injury or Trauma IMPRESSION: Left humerus: Left humerus intramedullary nail and associated screws are noted. Screws along the midhumeral diaphysis are external to the intramedullary nail, unchanged. New fracture of the inferiormost intramedullary nail screw. No significant interval change in alignment of a chronic left humeral diaphyseal fracture. Left elbow: No acute fracture of the elbow. The osseous alignment is normal. No elbow effusion. Left knee: No acute fracture. The osseous alignment appears normal on this nonweightbearing exam. There is moderate tricompartmental osteoarthritis of the left knee. A knee joint effusion is present. Soft tissue swelling along the anterior and inferior aspect of the knee. Dictated by: Noemi Pablo M.D. The radiology attending physician has personally reviewed this study, and had reviewed and/or edited this written report and agrees with it. Electronically signed by: Yue Palafox M.D. Raheem Thomson MD IMG XR PROCEDURES Final Result * XR Elbow Left 2 Views (06/19/2024 3:32 PM WEBMETHODS CONSULTANT) Anatomical Region Laterality Modality Upper Extremities, Elbow Left Compute d Radiography 06/19/2024 5:19 PM WEBMETHODS CONSULTANT Impressions 06/19/2024 6:21 PM WEBMETHODS CONSULTANT Left humerus: Left humerus intramedullary nail and associated screws are noted. Screws along the midhumeral diaphysis are external to the intramedullary nail, unchanged. New fracture of the inferiormost intramedullary nail screw. No significant interval change in alignment of a chronic left humeral diaphyseal fracture. Left elbow: No acute fracture of the elbow. The osseous alignment is normal. No elbow effusion. Left knee: No acute fracture. The osseous alignment appears normal on this nonweightbearing exam. ??There is moderate tricompartmental osteoarthritis of the left knee. A knee joint effusion is present. Soft tissue swelling along the anterior and inferior aspect of the knee. Dictated by: Noemi Pablo M.D. The radiology attending physician has personally reviewed this study, and had reviewed and/or edited this written report and agrees with it. Electronically signed by: Yue Palafox M.D. Narrative 06/19/2024 6:21 PM WEBMETHODS CONSULTANT EXAMINATION: XR ELBOW LEFT 2 VIEWS, XR HUMERUS LEFT 2 OR MORE VIEWS, XR KNEE LEFT 4 OR MORE VIEWS HISTORY: Pain, Upper Extremity Injury or Trauma Procedure Note Yue Palafox MD - 06/19/2024 EXAMINATION: XR ELBOW LEFT 2 VIEWS, XR HUMERUS LEFT 2 OR MORE VIEWS, XR KNEE LEFT 4 OR MORE VIEWS HISTORY: Pain, Upper Extremity Injury or Trauma IMPRESSION: Left humerus: Left humerus intramedullary nail and associated screws are noted. Screws along the midhumeral diaphysis are external to the intramedullary nail, unchanged. New fracture of the inferiormost intramedullary nail screw. No significant interval change in alignment of a chronic left humeral diaphyseal fracture. Left elbow: No acute fracture of the elbow. The osseous alignment is normal. No elbow effusion. Left knee: No acute fracture. The osseous alignment appears normal on this nonweightbearing exam. There is moderate tricompartmental osteoarthritis of the left knee. A knee joint effusion is present. Soft tissue swelling along the anterior and inferior aspect of the knee. Dictated by: Noemi Pablo M.D. The radiology attending physician has personally reviewed this study, and had reviewed and/or edited this written report and agrees with it. Electronically signed by: Yue Palafox M.D. us Umesh Chavez MD IMG XR PROCEDURES Final Resu lt * Surgical pathology (06/06/2024 12:26 PM WEBMETHODS CONSULTANT) Polyp(s), colon/colorectal , esophageal, gastric 06/06/2024 12:26 PM WEBMETHODS CONSULTANT 06/06/2024 2:44 PM WEBMETHODS CONSULTANT Narrative 06/07/2024 11:39 PM WEBMETHODS CONSULTANT EPIC results best viewed via link to PDF [facility] [place] [address] Note to Patients: This report may contain a detailed description of human tissue sent by a health care provider to the laboratory for pathologic evaluation. The content of this report is essential for diagnosis and may provide important critical findings. This information may be unfamiliar to patients to review without a medical professional present. It is advised that the patient review this report in the presence of a health care provider who can answer questions and explain the details. SURGICAL PATHOLOGY REPORT FINAL Patient Name: ?? MARCELLA VALLEJO Gender: ??F : ??1955 (Age: 69) Address: ??[address] [place] [address] ??[id number] Hospital #: ??[id number] Taken:06/06/2024 Received:06/06/2024 Reported: 06/07/2024 Patient Type: [facility] SDS ?? Service: Gastro Location: Physician(s): ??Elio Gresham M.D. Giacomo Wong M.D. Nikhil Flores MD Diagnosis: A. Large intestine, colon, endoscopic biopsy ? - Fragments of tubular adenoma ? - No evidence of high grade dysplasia or malignancy ? - Hyperplastic polyp B. Large intestine, ascending colon, biopsy ? - Tubular adenoma ? - No evidence of high grade dysplasia or malignancy [facility]/06/07/2024 23:39 By this signature, I attest that the above diagnosis is based upon my personal examination of the slides(and/or other material indicated in the diagnosis). Adi Schuler MD Report Electronically Reviewed and Signed Out By ??Adi Schuler MD 06/07/2024 23:39:40 Microscopic Description and Comment: Microscopic examination substantiates the above cited diagnosis. Sundar Cunha M.D. History: The patient is a 69-year-old woman presenting for HNPCC. ??Operative procedure: Colonoscopy. Specimen(s) Received: A: Colon polyps x8 B: Ascending colon polyp Gross Description: Received in two formalin jars labeled with the patient's identifiers. A. ??Labeled cold snare/forceps, colon polyps x8 and consists of multiple lowe- pink fragment(s) of soft tissue with an aggregate measurement of 2.0 x 1.0 x 0.3 cm. ?? Labeled A1. Jar 0. B. ??Labeled hot snare, ascending colon polyp and consists of one lowe-pink fragment(s) of soft tissue measuring 1.3 cm in greatest dimension. ?? Labeled B1. Jar 0. [facility]/06/06/2024 16:57 PA(s): Katharina Lewis By this signature, I attest that the above diagnosis is based upon my personal examination of the slides(and/or other material). Addenda/Procedures The performance characteristics of some immunohistochemical stains, fluorescence in-situ hybridization tests and immunophenotyping by flow cytometry cited in this report (if any) were determined by the Surgical Pathology and Flow Cytometry Departments at [facility] as part of an ongoing quality assurance inspector program and in compliance with federally mandated regulations drawn from the Clinical Laboratory Improvement Act of 1988 (CLIA '88). ??Some of these tests rely on the use of analyte specific reagents and are subject to specific labeling requirements by the US Food and Drug Administration. ??Such diagnostic tests may only be performed in a facility that is certified by the Department of Health and Human Services as a high complexity laboratory under CLIA '88. ??The FDA has determined that such clearance or approval is not necessary. ??This test is used for clinical purposes. ??It should not be regarded as investigational or for research. ??Nevertheless, federal rules concerning the medical use of analyte specific reagents require that the following disclaimer be attached to the report: This test was developed and its performance characteristics determined by the Surgical Pathology and Flow Cytometry Departments of [facility]. ??It has not been cleared or approved by the U. S. Food and Drug Administration. IMAGES AND SCANNED DOCUMENTS, IF INCLUDED, ONLY VIEWABLE IN PDF VERSION OF REPORT Elio Gresham MD LAB PATHOLOGY ORDERABLES Final Result * Colonoscopy (06/06/2024 12:04 PM WEBMETHODS CONSULTANT) Anatomical Region Laterality Modality Other Narrative Procedure Note Elio Gresham MD - 06/06/2024 12:04 PM CST [facility] Patient Name: Marcella Vallejo Procedure Date: 06/06/2024 12:04PM Date of : 1955 Admit Type: Outpatient Age: 69 Gender: Female Attending MD: Elio Gresham M.D. 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 Providers: Elio Gresham M.D., Nikhil Flores M.D. Medicines: Monitored Anesthesia Care Complications: No immediate complications. Estimated Blood Loss: Estimated blood loss was minimal. Procedure: Pre-Anesthesia Assessment: - Immediately prior to administration ofmedications, the patient was re-assessed for adequacy to receive sedatives. - The risks and benefits of the procedure and the sedation options and risks were discussed with the patient. All questions were answered and informed consent was obtained. The benefits, risks and alternatives of theprocedure and sedation were discussed and informed consentwas obtained. All questions were answered. Please referto the signed informed consent document in the medical record. The scope was passed under direct vision.The PC H190L [id number] endoscope was introduced through the anus and advanced to 5 cm into the ileum. The colonoscopy was performed without difficulty. The patient tolerated the procedure well. The qualityof the bowel preparation was good. The quality of the bowel preparation was evaluated using the BBPS(Reading Bowel Preparation Scale) with scores of: RightColon = 2 (minor amount of residual staining, smallfragments of stool and/or opaque liquid, but mucosa seenwell), Transverse Colon = 2 (minor amount of residual staining, small fragments of stool and/or opaque liquid, but mucosa seen well) and Left Colon = 2 (minor amount of residual staining, small fragmentsof stool and/or opaque liquid, but mucosa seen well).The total BBPS score equals 6. The quality of the bowel preparation was good. The bowel preparation usedwas polyethylene glycol (PEG) via split doseinstruction. Bowel prep was administered using a split dose. AI Technology was utilized during the procedure to aidin polyp detection. Findings: A 3 mm, non-bleeding polyp was found in the cecum. The polyp was sessile. The polyp was removed with a cold snare. Resection and retrieval were complete. A 9 mm polyp was found in the ascending colon. The polyp was sessile with central depression. Preparations were made for mucosalresection. Eleview was injected to raise the lesion. Hot snare mucosal resection was performed. Resection and retrieval were complete. To close adefect after polypectomy, one hemostatic clip was successfully placed. There was no bleeding during the procedure. Area was tattooed with an injection of 1 mL of Elizabeth ink. To close a defect after polypectomy,one hemostatic clip was successfully placed. There was no bleeding at the end of the procedure. Three sessile, non-bleeding polyps were found in the ascending colon. The polyps were 3 to 5 mm in size. These polyps were removed with acold snare. Resection and retrieval were complete. A 3 mm, non-bleeding polyp was found in the transverse colon. Thepolyp was sessile. The polyp was removed with a jumbo cold forceps.Resection and retrieval were complete. A 4 mm polyp was found in the descending colon. The polyp wassessile. The polyp was removed with a jumbo cold forceps. Resection andretrieval were complete. Two sessile polyps were found in the rectum. The polyps were 4 to 6mm in size. These polyps were removed with a cold snare. Resection and retrieval were complete. To close a defect after polypectomy, one hemostatic clip was successfully placed. The terminal ileum appeared normal. Impression: - A total of 9 polyps were resected and retreived - S/p EMR of ascending colon polyp, area tattoo'dfor identification - The examined portion of the ileum was normal. Recommendation: - Discharge patient to home (with escort). - Resume regular diet today. - Continue present medications. - Await pathology results. - Repeat colonoscopy in 1 year for surveillance, pending pathology on ascending colon polyp - A polyp or polyps were removed during your colonoscopy today. After the pathology result ofthe polyp(s)? ? ?is reviewed, the doctor who performedyour colonoscopy will recommend follow-up colonoscopy to you based on current guidelines by gastroenterology societies: - If only small hyperplastic polyps from the rectumor sigmoid were removed, repeat the colonoscopy in 10 years. - If 1 or 2? ? ?polyps less than 1 cm in size are adenomas, repeat the colonoscopy in 5 years. - If 3 or more polyps are adenomas, repeat the colonoscopy in 3 years. - If there are 10 or more adenomas, repeat the colonoscopy in 1 year. - If any polyp is 10 mm or greater in size, has villous histology or high grade dysplasia,repeat? ? ?the colonoscopy in 3 years. - If a polyp greater than 2 cm was removed with a piecemeal technique, repeat the colonoscopy in 6 months to be certain that there is no residualpolyp. - Sessile serrated polyps are treated like adenomas for surveillance purposes. Attending Participation: I personally performed the entire procedure. I was present and participated during the entire procedure, including non-keyportions. Electronically signed by Elio Gresham MD Elio Gresham M.D. 06/06/2024 1:23:09 PM . Number of Addenda: 0 Note Initiated On: 06/06/2024 12:04 PM us Elio Gresham MD ENDOSCOPY PROCEDURES Fin al Result * DEVICE CHECK - REMOTE (06/02/2024 3:49 PM WEBMETHODS CONSULTANT) Anatomical Region Laterality Modality Other 06/02/2024 3:49 PM WEBMETHODS CONSULTANT Narrative 06/12/2024 3:07 PM WEBMETHODS CONSULTANT Interpretation Summary: Battery and Leads (BL) Normal parameters noted on battery and lead(s) --- 31 months (6 to 55 months) remaining longevity (implanted 2012). ? Threshold and RV impedance trends stable and appropriate. ?? RA impedance trend shows variable measurements, recently stable in the 1000s. Presenting Rhythm (WA) Atrial Pacing-Ventricular Sensing (AP-VS) --- AP/VS ?? 74 bpm. Arrhythmic events (AE) Atrial High-Rate Episode(s) identified --- Since 03/07/24: ?? 4 AHR episodes, max 49 sec, with EGMs appearing to show over-sensing and competitive atrial pacing. ?? No VHR episodes. Anticoagulation ??(AC) Patient on antiplatelet therapy Patient is not on anticoagulant therapy Anticoagulation is not clinically indicated Transmission Information (TI) Device Summary Report Follow Up (FU) Patient's primary treating physician will be apprised of findings Procedure Note Thang Emery MD PhD - 06/12/2024 Interpretation Summary: Battery and Leads (BL) Normal parameters noted on battery and lead(s) --- 31 months (6 to 55months) remaining longevity (implanted 2012). Threshold and RVimpedance trends stable and appropriate. RA impedance trend showsvariable measurements, recently stable in the 1000s. Presenting Rhythm (WA) Atrial Pacing-Ventricular Sensing (AP-VS) --- AP/VS 74 bpm. Arrhythmic events (AE) Atrial High-Rate Episode(s) identified --- Since 03/07/24: 4 AHRepisodes, max 49 sec, with EGMs appearing to show over-sensing andcompetitive atrial pacing. No VHR episodes. Anticoagulation (AC) Patient on antiplatelet therapy Patient is not on anticoagulant therapy Anticoagulation is not clinically indicated Transmission Information (TI) Device Summary Report Follow Up (FU) Patient's primary treating physician will be apprised of findings us Thang Emery MD PhD [facility] [place] OCEDURES Final Result * Screening Mammogram Bilateral W Sukhdev (10/11/2023 11:29 AM CDT) Anatomical Region Laterality Modality Breast Bilateral Mammography Narrative 10/12/2023 4:05 PM CDT Mammogram Technique: Bilateral Digital Breast Tomosynthesis, Bilateral C-view 2D Screening mammogram. ??Views obtained: ??bilateral craniocaudal and bilateral mediolateral oblique. ??Computer Aided Detection was performed. Mammogram Findings: The present examination has been compared to prior imaging studies performed at [facility] on 10/07/2020, 10/08/2021 and 10/09/2022. The breasts are almost entirely fatty. There is no suspicious abnormality in either breast. Impression: There is no mammographic evidence of malignancy. Annual screening mammography is recommended. OVERALL FINAL ASSESSMENT: BI-RADS CATEGORY 1: ??Negative. Procedure Note Rosie Villareal MD - 10/12/2023 Mammogram Technique: Bilateral Digital Breast Tomosynthesis, Bilateral C-view 2D Screening mammogram. Views obtained: bilateral craniocaudal and bilateral mediolateral oblique. Computer Aided Detection was performed. Mammogram Findings: The present examination has been compared to prior imaging studies performed at [facility] on 10/07/2020, 10/08/2021 and 10/09/2022. The breasts are almost entirely fatty. There is no suspicious abnormality in either breast. Impression: There is no mammographic evidence of malignancy. Annual screening mammography is recommended. OVERALL FINAL ASSESSMENT: BI-RADS CATEGORY 1: Negative. us Self Screening Mammogram IMG MAMMO PROCEDURES Fi nal Result * Hepatitis C antibody (03/01/2023 12:15 PM CDT) Hep C Ab Nonreactive Nonreactive [facility] Comment:Antibodies to HCV no t detected. Does NOT exclude the possibility of recent exposure to HCV. Current interpretive data was last revised on 22 Blood 03/01/2023 12:1 5 PM CDT 03/01/2023 12:58 PM CDT us Notinfile Unknown LAB MICROBIOLOGY - GENERAL ORD ERABLES Final Result [facility] Department [place] [address] * Dexa Axial and Forearm Bone Density Scan (09/10/2021 10:28 AM WEBMETHODS CONSULTANT) Anatomical Region Laterality Modality Wrist, Body N/A Radiographic Sunni ging Narrative 09/10/2021 10:40 AM WEBMETHODS CONSULTANT Patient Name: Marcella Vallejo Date of : 1955 Date of scan: 09/10/2021 Bone mineral density was performed on a Hologic Discovery Densitometer. ?? Based on machine cross-calibration and precision studies the least significant changes of this densitometer is 0.024 g/cm2 at the spine, 0.020 g/cm2 at the total proximal femur, and 0.014g/cm2 at the forearm. HISTORY: This is a 66 y.o. postmenopausal female with a history of asthma, hyperparathyroidism and osteoporosis. She reports that she has quit smoking. She has never used smokeless tobacco. She currently on treatment with calcium, previously treated with diuretics and current complaint of back pain. INDICATIONS: Menopause status and history of osteoporosis. FINDINGS: BONE MINERAL DENSITY OF THE LUMBAR SPINE Bone Mineral Density (BMD) of the lumbar spine was measured from L1-L3 and the average density was calculated to be 1.391 gm/cm2. This corresponds to a T-score (standard deviations from the mean of young adults) of 3.4. There is no previous study available for comparison. BONE MINERAL DENSITY OF THE FOREARM Bone Mineral density (BMD) of the left proximal 1/3 of the radius measures 0.629 gm/cm2. This corresponds to a T-score (standard deviations from the mean of young adults) of -1.1. There is no previous study available for comparison. A forearm bone density study was performed instead of a proximal femur study because of history of hyperparathyroidism and bilateral hip replacements. SUMMARY: Bone mineral density shows evidence of low bone mass at the forearm and moderately increased fracture risk (Osteopenia). L4 excluded from bone mineral density analysis of the lumbar spine because of bone density being more than 1 standard deviation discrepant relative to one adjacent vertebra. ??Clinical correlation is recommended. ADDITIONAL COMMENTS: Postmenopausal Women and Men Over 50: Diagnostic criteria: Osteoporosis: BMD at or below -2.5 T-score; Osteopenia (low bone mass): BMD between -1.0 and -2.5 T-score. If the patient has a history of a fragility fracture, a fracture that occurred with trauma equivalent to a fall from a standing position or less, then the diagnosis is osteoporosis regardless of bone density. The history and data sections of the bone mineral density scan were prepared by Demetria HYLTON) who is accredited by the International Society of Clinical Densitometry. The overall patient assessment and scan interpretation were performed by Lillie Chang M.D. who is certified by the International Society of Clinical Densitometry. [id number] Vickie Pickens MD IMG DXA PROCEDURES Final Resu lt from Last 3 Months or Most Recently Relevant to Health Maintenance Insurance MEDICARE MEDICARE [facility] MEDICARE [facility]ICARE [facility] MEDICARE Advance Directives For more information, please contact: [phone] * Full Code (Latest Code Status on File) Date Activated Date Inactivated Comments 06/06/2024 11:20 AM 06/06/2024 6:37 PM * Full Code Date Activated Date Inactivated Comments 11/13/2023 1:17 AM 11/14/2023 9:33 PM * Full Code Date Activated Date Inactivated Comments 12/22/2022 7:12 PM 12/24/2022 1:23 AM * Full Code Date Activated Date Inactivated Comments 02/18/2022 8:44 PM 02/24/2022 9:31 PM * Full Code Date Activated Date Inactivated Comments 07/29/2021 10:36 AM 07/29/2021 5:12 PM Care Teams Technical Assistant Relationship Specialty Start Date End Date Giacomo Wong MD [address] [place] [address] PCP - General 09/02/16 Lexi Tyler MD [address] [facility] [address] Consulting Physician Medical Oncology 08/26/20 Terra Andre MD PhD [address] [facility] [address] [place] [address] Consulting Physician Medical Oncology 03/30/23
--- OUTSIDE RECORDS SUMMARY | 2024-08-17 12:43 | XMS_ITS | Encounter Summary ---
Author Organization [facility] Address [address] [place] [address] Phone Care Team Providers Care Road Patcher Name Role Phone Giacomo Wong MD Primary Care Prov ider Lexi Tyler MD Unavailable [phone] Terra Andre MD PhD Unavailable [phone] Encounter Details Date Type Department Care Team (Late st Contact Info) Description 07/30/2014 Orders Only [facility]INCONV Provider, MD Sandra [address] [place] [id number] Social History Tobacco Use Types Packs/Day Years Used Date Smoking Tobacco: Never Assessed Comments Unknown Sex and Gender Information Value Date Recorded Sex Assigned at Not on file Legal Sex Female 7:49 PM SENIOR IT SPECIALIST Gender Identity Female 04/07/2021 9:20 AM CDT Sexual Orientation Straight 08/16/2020 10 :27 PM SENIOR IT SPECIALIST documented as of this encounter Plan of Treatment Not on file documented as of this encounter Procedures Procedure Name Priority Date/Time Associated Diagnosis Comments CARDIOLOGY REPORT 07/30/2014 documented in this encounter Results * CARDIOLOGY REPORT (07/30/2014) Anatomical Region Laterality Modality Other Narrative 07/30/2014 Ordered by an unspecified provider. us Historical Provider [facility] Final Result documented in this encounter Visit Diagnoses Not on filedocumented in this encounter Care Teams Road Patcher Relationship Specialty Start Date End Date Giacomo Wong MD [address] [place] [address] PCP - General 09/02/16 Lexi Tyler MD [address] [place] [address] Consulting Physician Medical Oncology 08/26/20 Terra Andre [place] PhD [address] [place] [address] [address] [facility] [place] [address] Consulting Physician Medical Oncology 03/30/23 documented as of this encounter
--- OUTSIDE RECORDS SUMMARY | 2024-08-17 12:43 | XMS_ITS | Clinical Summary ---
Author Organization [facility] al Address [address] [place] [address] Care Team Providers Care Boring Machine Set Up Operator Name Role Phone Giacomo Wogn MD Primary Care Prov ider Lexi [place] MD Unavailable Terra Andre MD PhD Unavailable [phone] Allergies Active Allergy Reactions Criticality Noted Date [...] (02/11/2022): Added automatically from request for surgery [id number] Assessment & Plan (02/24/2022 12:11 PM CDT): Orthopedic surgery is following. Case discussed in detail with CONSTRUCTION INSPECTOR. Drain still in place- to remain until office follow up, keep on doxy. VTE ppx witb bid asa 81 Pain control with gabapentin and PRN oxycodone 5 mg Q4 hours, bowel regimen Assessment & Plan (02/23/2022 4:50 PM CDT): Orthopedic surgery is following. Case discussed in detail with CONSTRUCTION INSPECTOR. Drain still in place- to remain until office follow up, keep on doxy. 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 Overview (04/01/2020): Added automatically from request for surgery [id number] HNPCC (hereditary nonpolyposis colon cancer) 04/2018 Overview (03/28/2018): Added automatically from request for surgery [id number] History of total hip replacement 04/16/2017 Primary [...] pain 08/08/2014 02/18/2018 Chest pain 12/23/2011 02/18/2018 Encounters Date Type Department Care Team Description 08/11/2024 9:26 AM CELLULAR BIOLOGIST - 08/11/2024 11:59 PM CELLULAR BIOLOGIST Hospital Encounter [facility] [address] [place] [address] Dayo Landry MD Fibrosarcoma (HCC) Discharge Disposition: Discharge to home or self care 08/11/2024 9:15 AM CELLULAR BIOLOGIST Office Visit [facility] [address] [place] [address] 6th [place] [address] [place] [address] Dayo Landry MD Bilateral primary osteoarthritis of knee (Primary Dx); 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, subsequent encounter; Fibrosarcoma (HCC) 08/01/2024 1:45 PM CELLULAR BIOLOGIST Office Visit [facility] [address] [facility] [address] [place] [address] Apurva Moreno PA Bilateral primary osteoarthritis of knee (Primary Dx) 07/23/2024 Telephone [facility] [address] [place] [address] 6th [place] [address] [place] [address] Dayo Landry MD Apt Time Delay- Weather 07/21/2024 Orders Only [facility] [address] [place] [address] 6th [place] [address] [place] [address] Dayo Landry MD Fibrosarcoma (HCC) (Primary Dx) 06/19/2024 4:54 PM CELLULAR BIOLOGIST - 06/19/2024 9:58 PM CELLULAR BIOLOGIST Emergency [facility] Emergency Department [address] [facility] [place] [address] Raheem Thomson MD Knee effusion, left (Primary Dx); Fall on same level from tripping; Abrasion; Other closed fracture of shaft of left humerus, initial encounter Discharge Disposition: Discharge to home or self care 06/19/2024 11:15 AM CELLULAR BIOLOGIST Office Visit [facility] [address] [place] [address] 8th [place] [address] [place] [address] Thang Emery MD PhD Adjustment and management of cardiac pacemaker (Primary Dx); Sick sinus syndrome (CMS/HCC) (HCC); Primary hypertension 06/19/2024 10:45 AM CELLULAR BIOLOGIST Ancillary Procedure [facility] [address] [place] [address] 8th [place] [address] [place] [address] Sick sinus syndrome (CMS/HCC) (HCC); Adjustment and management of cardiac pacemaker 06/19/2024 Telephone [facility] [address] [place] [address] 8th [place] [address] [place] [address] Thang Emery MD PhD 06/06/2024 12:12 PM CELLULAR BIOLOGIST Anesthesia Event [facility] [address] [address] Karol Arguello MD Frasca, Elizabeth Renee, HANSA 06/06/2024 11:45 AM CELLULAR BIOLOGIST - 06/06/2024 12:30 PM CELLULAR BIOLOGIST Surgery [facility] Disease [address] [address] Elio Gresham MD COLON MUCOSAL RESECTION 06/06/2024 11:12 AM CELLULAR BIOLOGIST - 06/06/2024 2:37 PM CELLULAR BIOLOGIST Hospital Encounter [facility] [address] [address] Elio Gresham MD HNPCC (hereditary nonpolyposis colon cancer) Discharge Disposition: Discharge to home or self care 06/06/2024 Orders Only [facility] [address] [place] [address] 12th [place] [address] [place] [address] Elio Gresham MD 06/02/2024 Orders Only [facility] [address] [facility] [address] [place] [address] Thang Emery MD PhD 06/02/2024 Telephone [facility] [address] [place] [address] 8th [place] [address] [place] [address] Thang Emery MD PhD 06/01/2024 Telephone [facility] [address] [place] [address] Anai Thurman, MEG GI PROCEDURE 3 DAY PRE CALL 05/30/2024 Telephone [facility] [address] [place] [address] Anai Thurman RN GI PROCEDURE 7 DAY PRE CALL 05/23/2024 Orders Only [facility] 12th [place] [address] [place] [address] Homero Gisselle HNPCC (hereditary nonpolyposis colon cancer) (Primary Dx) from Last 3 Months Immunizations Name Administration Dates Next Due Influenza, Quadrivalent, Hig h Dose, Preservative Free, Intrr 05/19/2022,05/03/2020 Influenza, Trivalent, High D ose, Split, Preservative Free, Intramuscular 05/22/2019 Influenza, Trivalent, IM (MDV) 04/18/2013 Influenza, Trivalent, Preser vative Free, Intramuscular 04/27/2016,05/29/2015 Moderna SARS-CoV-2 Monovalen t Vaccination (12+ YRS) 10/01/2020,09/18/2020,08/21/2020 Tdap 01/29/2015 ZOSTER LIVE 06/14/2016 Surgical History Surgery Date Site/Laterality Comments OTHER SURGICAL HISTORY sarcoma (left tricep, left shoulder blade area) 1997 & 2012 CARDIAC PACEMAKER PLACEMENT 07/19/2006 - 07/18/2007 HIP ARTHROPLASTY 07/19/2016 - 07/18/2017 Bilateral APPENDECTOMY 06/18/2004 - 07/18/2004 CHOLECYSTECTOMY 06/18/2004 - 07/18/2004 COLON SURGERY 07/19/1997 - 07/18/1998 COLONOSCOPY multiple UPPER GASTROINTESTINAL ENDOSCOPY multiple HYSTERECTOMY 03/04/1988 leiomyom and menorrhagia; ovaries intact TONSILLECTOMY/ADENOIDECTOMY DILATION AND CURETTAGE OF UTERUS APPENDECTOMY 07/19/2003 - 07/18/2004 SALPINGECTOMY 07/19/2005 - 07/18/2006 Bilateral INSERT / REPLACE / REMOVE PACEMAKER 07/19/2012 - 07/18/2013 Right relocated to [facility] due to radiation CATARACT EXTRACTION Bilateral Medical History Medical History Date Comments Hypertension Hypertension Hx Other Medical osteoarthritis Hx Other Medical high cholestero l Hx Other Medical neuropathy Hx Other Medical cancer Airway hyperreactivity Asthma Hx Other Medical MRSA Motion sickness Colon cancer (CMS/HCC) (HCC) Chronic diarrhea Colon polyp Hyperlipidemia Urinary tract infection Arthritis Obesity History of transfusion Fibroid PONV (postoperative nausea a nd vomiting) needs to be pre medicated wi th zofran tablets Difficulty in swallowing 08/08/2014 Family History Medical History Relation Name Comments Hypertension Brother 1 Fabio negative genetic testing Brother 1 Bill hyaline membrane disease Brother 2 Naeem Colon polyps Daughter MSH2 Daughter Hypertension Father Ernie Melanoma Father Ernie Obesity Father Ernie Pancreatitis Father Ernie motor vehicle accident Father's Sister Colon cancer Maternal Grandfather CVA Maternal Grandmother bone tumor Maternal Grandmother Colon cancer Mother Uterine cancer Mother Colon cancer Mother's Brother Francisco Javier Stomach cancer Mother's Brother Francisco Javier Polycystic kidney disease Nephew Hypertension Paternal Grandmother Hypertension Sister 1 Claritza Obesity Sister 1 Claritza Miscarriages / Stillbirths Sister 2 Alicia s tillborn Negative genetic testing Son Anesthesia problems Neg Hx Relation Name Status Comments Brother 1 Bill Alive Brother 2 Naeem Daughter Alive Father Ernie (Age 77) Father's Sister Maternal Grandfather Maternal Grandmother Mother Mother's Brother Francisco Javier Nephew Alive Paternal Grandmother Sister 1 Claritza Alive Sister 2 Alicia Son Alive Social History Tobacco Use Types Packs/Day Years [...] on file Legal Sex Female 7:49 PM CELLULAR BIOLOGIST Gender Identity Female 04/07/2021 9:20 AM CDT Sexual Orientation Straight 08/16/2020 10 :27 PM CELLULAR BIOLOGIST Obstetrics History Last Filed Vital Signs Vital Sign Reading Time Taken Comments Blood Pressure 131/76 08/01/2024 2:01 PM CELLULAR BIOLOGIST Pulse 83 08/01/2024 2:01 PM CELLULAR BIOLOGIST Temperature 36.4 ??C (97.6 ??F) 06/19/2024 2:45 PM CS T Respiratory Rate 18 06/19/2024 4:42 PM CELLULAR BIOLOGIST Oxygen Saturation 98% 06/19/2024 4:42 PM CELLULAR BIOLOGIST Inhaled Oxygen Concentration - - Weight 136.6 kg (301 lb 3.2 oz) 08/01/2024 2:01 PM CELLULAR BIOLOGIST Height 180.3 cm (5' 11 ) 08/01/2024 2:01 PM CELLULAR BIOLOGIST Body Mass Index 42.01 08/01/2024 2:01 PM CELLULAR BIOLOGIST Plan of Treatment Health Maintenance Due Date Last Done Comments Depression Screening 1955 Zoster Vaccine (2 of 3) 08/09/2016 06/14/2016 Pneumococcal vaccine 65+ (1 of 1 - PCV) 2018 Well Visit 65+ 2018 Osteoporosis Screening-Bone Density Scan 09/10/2023 09/10/2021 Covid-19 Vaccine (6 2023-2 5 season) 2024 11/24/2021, 05/17/2021, 10/01/2020, Additional history exists Influenza Vaccine (#1) 2024 , 05/03/2020, 05/22/2019, Additional history exists Breast Cancer Screening-Mammogram 10/10/2024 10/11/2023, 10/09/2022, 10/08/2021, Additional history exists DTaP/Tdap/Td Vaccine (2 - Td or Tdap) 01/29/2025 01/29/2015 Fall Risk Assessment 06/06/2025 06/06/2024 Colon Cancer Screening-Colonoscopy 06/06/2034 06/06/2024, 07/29/2021, 11/12/2020, Additional history exists Hepatitis B Screening Completed 03/01/2023 Hepatitis C Screening Completed 03/01/2023, 022 Colon Cancer Screening-CT Colonography Discontinued 06/06/2024, 07/29/2021, 11/12/2020, Additional history exists Colon Cancer Screening-DNA Stool Discontinued 06/06/2024, 07/29/2021, 11/12/2020, Additional history exists Colon Cancer Screening-FIT Discontinued 06/06, 07/29/2021, 11/12/2020, Additional history exists Colon Cancer Screening-Sigmoidoscopy Discontinued 06/06/2024, 07/29/2021, 11/12/2020, Additional history exists Medical Devices Implanted Type Area Sql Ssrs Ssis Developer Device Identifier Shelf Expiration Date Model / Serial / Lot Allosource Freeze Dried Chips 1-10mm Graft 15ml Bone Cancellous [id number] - [id number] - [id number] Implanted:Qty: 1 on 11/12/2023 by Dayo Landry MD at [facility] Bone Left: Humerus Allosource 12/29/2027 [id number] / [id number] / [id number] Synthes Nail 8.5mm 9.5mm 270mm Humrl Left Multiloc Im Long Str 04.019.270s - [id number] Implanted:Qty: 1 on 11/12/2023 by Dayo Landry MD at [facility] Nail Left: Humerus Synthes I 12/16/2025 04.019.27 0S / / [id number] Synthes Plate 205mm Bone Stainless Steel 13 Hole Variable Angle Rnd 02.117.313s - S0 - [id number] Implanted:Qty: 1 on 02/18/2022 by Dayo Landry MD at [facility] Other - see comments Left: Humerus Synthes I 04/17/2031 02.117.31 3S / 0 / [id number] Pacemaker Pacemaker Left: Heart Synthes Multiloc 4.5mm 3.9mm 38mm Blunt Tip Self Cut Suture Hole 04.019.038s - [id number] Implanted:Qty: 1 on 11/12/2023 by Dayo Landry MD at [facility] Screw Left: Humerus Synthes I 04.019.03 8S / / Synthes Multiloc 4.5mm 28mm Blunt Tip Self Cut Suture Hole Countersink 04.019.028s - [id number] Implanted:Qty: 1 on 11/12/2023 by Dayo Landry MD at [facility] Screw Left: Humerus Synthes I 04.019.02 8S / / Synthes 4mm 3.3mm 30mm Lock Self Tap Blunt Tip 2 Lead Tibial T25 Full 04.005.420s - [id number] Implanted:Qty: 1 on 11/12/2023 by Dayo Landry MD at [facility] Screw Left: Humerus Synthes I 04.005.42 0S / / Synthes 4mm 3.3mm 24mm Lock Self Tap Blunt Tip 2 Lead Tibial T25 Full 04.005.414s - [id number] Implanted:Qty: 1 on 11/12/2023 by Dayo Landry MD at [facility] Screw Left: Humerus Synthes I 04.005.41 4S / / Synthes 4mm 3.3mm 28mm Lock Self Tap Blunt Tip 2 Lead Tibial T25 Full 04.005.418s - [id number] Implanted:Qty: 1 on 11/12/2023 by Dayo Landry MD at [facility] Screw Left: Humerus Synthes I 04.005.41 8S / / Synthes 4.5mm 8mm 32mm Self Tap Large Hexagonal Socket Cortex Screw Bone 214.832 - [id number] Implanted:Qty: 2 on 02/18/2022 by Dayo Landry MD at [facility] Left: Humerus Synthes I 214.832 / / Synthes 3.5mm 2.9mm 24mm Self Tap Lock Stardrive Conical Head Pelvis T15 212.108 - [id number] Implanted:Qty: 1 on 02/18/2022 by Dayo Landry MD at [facility] Left: Humerus Synthes I 212.108 / / Synthes 3.5mm 2.9mm 28mm Self Tap Lock Stardrive Conical Head T15 Full 212.110 - [id number] Implanted:Qty: 1 on 02/18/2022 by Dayo Landry MD at [facility] Left: Humerus Synthes I 212.110 / / Synthes 3.5mm 2.9mm 30mm Self Tap Lock Stardrive Conical Head T15 Full 212.111 - [id number] Implanted:Qty: 1 on 02/18/2022 by Dayo Landry MD at [facility] Left: Humerus Synthes I 212.111 / / Synthes Norian Drillable Fast Set Putty Filler 5cc Bone Void Calcium 07.704.105s - [id number] Implanted:Qty: 1 on 02/18/2022 by Dayo Landry MD at [facility] Left: Humerus Synthes I 09/15/2022 07.704.10 5S / / Synthes Lcp Combi 230mm 10 Hole Precontour Limit Contact Taper Head 02.104.030 - [id number] Implanted:Qty: 1 on 02/18/2022 by Dayo Landry MD at [facility] Left: Humerus Synthes I 02.104.03 0 / / Synthes 3.5mm 6mm 22mm 2.5mm Self Tap Small Hexagonal Socket Low Profile 204.822 - [id number] Implanted:Qty: 3 on 02/18/2022 by Dayo Landry MD at [facility] Left: Humerus Synthes I 204.822 / / Synthes 3.5mm 6mm 24mm 2.5mm Self Tap Small Hexagonal Socket Low Profile 204.824 - [id number] Implanted:Qty: 3 on 02/18/2022 by Dayo Landry MD at [facility] Left: Humerus Synthes I 204.824 / / Synthes Lcp Combi 152x13.5x4.2mm 8 Hole Limit Contact Taper End Narrow 224.581 - [id number] Implanted:Qty: 1 on 02/18/2022 by Dayo Landry MD at [facility] Left: Humerus Synthes I 224.581 / / Synthes 4.5mm 8mm 26mm Self Tap Large Hexagonal Socket Cortex Screw Bone 214.826 - [id number] Implanted:Qty: 2 on 02/18/2022 by Dayo Landry MD at [facility] Left: Humerus Synthes I 214.826 / / Synthes 4.5mm 8mm 28mm Self Tap Large Hexagonal Socket Cortex Screw Bone 214.828 - [id number] Implanted:Qty: 1 on 02/18/2022 by Dayo Landry MD at [facility] Left: Humerus Synthes I 214.828 / / Synthes Washer 29/01 04.045.780s - [id number] Implanted:Qty: 1 on 11/12/2023 by Dayo Landry MD at [facility] Left: Humerus Synthes I 04.045.78 0S / / Musculoskeletal Transplant Allograft Putty Freeze Dried Filler 10cc Bone Void Dbx 834197 - [id number] 10 - [id number] Implanted:Qty: 1 on 11/12/2023 by Dayo Landry MD at [facility] Left: Humerus Musculoskeletal Transplant 05/08/2025 [id number] / [id number] / Procedures Procedure Name Priority Date/Time Associated Diagnosis Comments XR HUMERUS LEFT 2 OR MORE VIEWS Routine 08/11/2024 9:40 AM CELLULAR BIOLOGIST Fibrosarcoma (HCC) AL ARTHROCENTESIS ASPIR&/INJ MAJOR JT/BURSA W/O US Routine 08/01/2024 1:45 PM CELLULAR BIOLOGIST Bilateral primary osteoarthritis of knee AL ARTHROCENTESIS ASPIR&/INJ MAJOR JT/BURSA W/O US Routine 08/01/2024 1:45 PM CELLULAR BIOLOGIST Bilateral primary osteoarthritis of knee DIFFERENTIAL AUTO STAT 06/19/2024 8:5 4 PM CELLULAR BIOLOGIST CBC WITH AUTO DIFFERENTIAL STAT 06/19/2024 8:54 PM CELLULAR BIOLOGIST XR HUMERUS LEFT 2 OR MORE VIEWS ED 06/19/2024 8:23 PM CELLULAR BIOLOGIST XR SHOULDER LEFT 2 OR MORE VIEWS ED 06/19/2024 8:08 PM CELLULAR BIOLOGIST EGFR STAT 06/19/2024 7:08 PM CELLULAR BIOLOGIST CRP (ACUTE PHASE) STAT 06/19/2024 7:0 8 PM CELLULAR BIOLOGIST BASIC METABOLIC PANEL STAT 06/19/2024 7:08 PM CELLULAR BIOLOGIST XR HAND RIGHT 3 OR MORE VIEWS ED 06/19/2024 5:49 PM CELLULAR BIOLOGIST XR TIBIA FIBULA LEFT 2 VIEWS ED 06/19/2024 5:49 PM CELLULAR BIOLOGIST XR KNEE LEFT 4 OR MORE VIEWS ED 06/19/2024 3:33 PM CELLULAR BIOLOGIST XR HUMERUS LEFT 2 OR MORE VIEWS ED 06/19/2024 3:33 PM CELLULAR BIOLOGIST XR ELBOW LEFT 2 OR MORE VIEWS ED 06/19/2024 3:32 PM CELLULAR BIOLOGIST SURGICAL PATHOLOGY Routine 06/06/2024 12:26 PM CELLULAR BIOLOGIST ENDO ADD ON COLON BIOPSY 06/06/2024 12:12 PM CELLULAR BIOLOGIST HNPCC (hereditary nonpolyposis colon cancer) ENDO ADD ON COLON REMOVAL SNARE 06/06/2024 12:12 PM CELLULAR BIOLOGIST HNPCC (hereditary nonpolyposis colon cancer) COLON MUCOSAL RESECTION 06/06/2024 12:12 PM CELLULAR BIOLOGIST HNPCC (hereditary nonpolyposis colon cancer) COLONOSCOPY 06/06/2024 12:04 PM CELLULAR BIOLOGIST DEVICE CHECK - REMOTE Routine 06/02/2024 3:49 PM CELLULAR BIOLOGIST SCREENING MAMMOGRAM BILATERAL W SUKHDEV Schedule Routine, Read Routine (OP Routine) 10/11/2023 11:29 AM CDT Screening mammogram, encounter for HEPATITIS C ANTIBODY STAT 03/01/2023 12:15 PM CDT DEXA AXIAL AND FOREARM BONE DENSITY SCAN Schedule Routine, Read Routine (OP Routine) 09/10/2021 10:28 AM CELLULAR BIOLOGIST Hypercalcemia Elevated PTHrP level Other osteoporosis, unspecified pathological fracture presence from Last 3 Months or Most Recently Relevant to Health Maintenance Results * XR Humerus Left 2 or More Views (08/11/2024 9:40 AM CELLULAR BIOLOGIST) Anatomical Region Laterality Modality Upper Extremities, Upper Arm Left Com puted Radiography 08/11/2024 9:55 AM CELLULAR BIOLOGIST Impressions 08/11/2024 9:55 AM CELLULAR BIOLOGIST 1. 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 Electronically signed by: María Weathers MD Narrative 08/11/2024 9:55 AM CELLULAR BIOLOGIST EXAMINATION: XR HUMERUS LEFT 2 OR MORE [...] screw. Electronically signed by: María Weathers MD us Dayo Landry MD IMG XR PROCEDURES Final Re sult * AL ARTHROCENTESIS ASPIR&/INJ MAJOR JT/BURSA W/O US (08/01/2024 1:45 PM CELLULAR BIOLOGIST) Abel Mackey MD - 08/01/2024 1:45 PM CELLULAR BIOLOGIST Apurva Moreno PA ? 08/01/2024 ??2:27 PM [...] the procedure well with no immediate complications us Apurva HAJI IN CLINIC/BEDSIDE ORD ERABLES Edited Result - Final * AL ARTHROCENTESIS ASPIR&/INJ MAJOR JT/BURSA W/O US (08/01/2024 1:45 PM CELLULAR BIOLOGIST) Narrative Abel Valdovinos MD - 08/01/2024 1:45 PM CELLULAR BIOLOGIST Apurva Moreno PA ? 08/01/2024 ??2:27 PM [...] the procedure well with no immediate complications us Apurva HAJI IN CLINIC/BEDSIDE ORD ERABLES Edited Result - Final * (ABNORMAL) Differential, auto (06/19/2024 8:54 PM CELLULAR BIOLOGIST) Neutrophil abs 7.9(H) 1.5 - 6.5 K/cumm Imm gran abs 0.1 0.0 - 0.1 K/cumm [facility] Lymphocyte abs 2.1 0.8 - 3.3 K/cumm [facility] Monocyte abs 0.9(H) 0.2 - 0.8 K/cumm [facility] Eosinophil abs 0.2 0.0 - 0.5 K/cumm [facility] Basophil abs 0.1 0.0 - 0.1 K/cumm [facility] Neutrophil pct 70.8 % [facility] Comment: Interpretive Data Percent cell count reference ranges are not reported, since discordance with absolute values may lead to misinterpretation of CBC data. Current Interpretive Data was last revised on 2017. Imm gran pct 0.6 % [facility] Comment: Interpretive Data Percent [...] revised on 2017. Basophil pct 0.4 % [facility] Comment: Interpretive Data Percent cell count reference ranges are not reported, since discordance with absolute values may lead to misinterpretation of CBC data. Current Interpretive Data was last revised on 2017. Blood 06/19/2024 8:54 PM CELLULAR BIOLOGIST 06/19/2024 9:04 PM CELLULAR BIOLOGIST Raheem Thomson MD LAB BLOOD ORDERABLES Fin al Result Performing Organization Address [facility] Co de Phone Number [facility] Department [place] [address] * (ABNORMAL) CBC with auto differential (06/19/2024 8:54 PM CELLULAR BIOLOGIST) Pathologist [facility] WBC 11.2(H) 3.8 - 9.9 K/cumm Hgb 13.5 11.9 - 15.5 g/dL [facility] Hct 41.8 35.6 - 45.5 % [facility] Plt 242 150 - 400 K/cumm [facility] MPV 9.8 9.1 - 12.3 fL [facility] RBC 4.72 3.90 - 5.20 M/cumm [facility] MCV 88.6 81.3 - 96.4 fL [facility] MCH 28.6 27.1 - 33.3 pg [facility] MCHC 32.3 32.3 - 35.7 g/dL [facility] RDW CV 14.5 11.1 - 14.9 % [facility] RDW SD 46.7 35.7 - 48.1 fL [facility] NRBC abs 0.02(H) 0.00 - 0.01 K/cumm [facility] Blood 06/19/2024 8:54 PM CELLULAR BIOLOGIST 06/19/2024 9:04 PM CELLULAR BIOLOGIST Raheem Thomson MD LAB BLOOD ORDERABLES Fin al Result [facility] [place] [address] * XR Humerus Left 2 or More Views (06/19/2024 8:23 PM CELLULAR BIOLOGIST) Anatomical Region Laterality Modality Upper Extremities, Upper Arm Left Com puted Radiography 06/19/2024 8:40 PM CELLULAR BIOLOGIST Impressions 06/19/2024 8:58 PM CELLULAR BIOLOGIST 2 radiographs of the left humerus are [...] Yue Palafox M.D. Narrative 06/19/2024 8:58 PM CELLULAR BIOLOGIST EXAMINATION: XR HUMERUS LEFT 2 OR MORE [...] Shoulder Left 2+ views (06/19/2024 8:08 PM CELLULAR BIOLOGIST) Anatomical Region Laterality Modality Upper Extremities, Shoulder Left Comp uted Radiography 06/19/2024 8:16 PM CELLULAR BIOLOGIST Impressions 06/19/2024 8:46 PM CELLULAR BIOLOGIST Unchanged appearance of comminuted internally fixated left [...] Yue Palafox M.D. Narrative 06/19/2024 8:46 PM CELLULAR BIOLOGIST EXAMINATION: XR SHOULDER LEFT 2 OR MORE [...] Final Result * eGFR (06/19/2024 7:08 PM CELLULAR BIOLOGIST) [facility] eGFR 85 >=60 mL/min/1. 73 m2 Comment: [...] last reviewed 2021. Blood 06/19/2024 7:08 PM CELLULAR BIOLOGIST 06/19/2024 7:18 PM CELLULAR BIOLOGIST Raheem Thomson MD LAB BLOOD ORDERABLES Fin al Result Performing Organization Address [facility] de Phone Number [facility]ST[facility] [place] [address] * CRP (acute phase) (06/19/2024 7:08 PM CELLULAR BIOLOGIST) CRP 0.8 <=10.0 mg/L Blood 06/19/2024 7:08 PM CELLULAR BIOLOGIST 06/19/2024 7:18 PM CELLULAR BIOLOGIST Raheem Thomson MD LAB BLOOD ORDERABLES Fin al Result Performing Organization Address [facility] Co de Phone Number K[facility]ST[facility] [place] [address] * (ABNORMAL) Basic metabolic panel (06/19/2024 7:08 PM CELLULAR BIOLOGIST) Sodium 137 135 - 145 mmol/L Potassium, pl 5.0(H) 3.3 - 4.9 mmol/L [facility] Comment:Hemolyzed; Potassium value may be falsely elevated by as much as 1.1-1.6 mmol/L. Suggest redraw and reanalysis. Chloride 102 97 - 110 mmol/L [facility] CO2 22 22 - 32 mmol/L [facility] Anion gap 13 2 - 15 mmol/L [facility] BUN 25 6 - 25 mg/dL [facility] Creatinine 0.75 0.60 - 1.10 mg/dL [facility] Glucose 101 70 - 199 mg/dL [facility] Comment: Interpretive Data Fasting glucose >/= 126 [...] 2022. Calcium 9.0 8.5 - 10.3 mg/dL [facility] Blood 06/19/2024 7:08 PM CELLULAR BIOLOGIST 06/19/2024 7:18 PM CELLULAR BIOLOGIST Raheem Thomson MD LAB BLOOD ORDERABLES [facility] al Result [facility] [facility] [place] [address] * XR Hand Right 3+ views (06/19/2024 5:49 PM CELLULAR BIOLOGIST) Anatomical Region Laterality Modality Upper Extremities, Hand Right Computed Radiography 06/19/2024 6:12 PM CELLULAR BIOLOGIST Impressions 06/19/2024 6:44 PM CELLULAR BIOLOGIST Left tibia and fibula: No acute fracture. [...] Yue Palafox M.D. Narrative 06/19/2024 6:44 PM CELLULAR BIOLOGIST EXAMINATION: XR TIBIA FIBULA LEFT 2 VIEWS, [...] Fibula Left 2 views (06/19/2024 5:49 PM CELLULAR BIOLOGIST) Anatomical Region Laterality Modality Lower Extremities, Lower Leg Left Com puted Radiography 06/19/2024 6:12 PM CELLULAR BIOLOGIST Impressions 06/19/2024 6:44 PM CELLULAR BIOLOGIST Left tibia and fibula: No acute fracture. [...] Yue Palafox M.D. Narrative 06/19/2024 6:44 PM CELLULAR BIOLOGIST EXAMINATION: XR TIBIA FIBULA LEFT 2 VIEWS, [...] 4 or More Views (06/19/2024 3:33 PM CELLULAR BIOLOGIST) Anatomical Region Laterality Modality Lower Extremities, Knee Left Computed Radiography 06/19/2024 5:19 PM CELLULAR BIOLOGIST Impressions 06/19/2024 6:21 PM CELLULAR BIOLOGIST Left humerus: Left humerus intramedullary nail and [...] Yue Palafox M.D. Narrative 06/19/2024 6:21 PM CELLULAR BIOLOGIST EXAMINATION: XR ELBOW LEFT 2 VIEWS, XR [...] 2 or More Views (06/19/2024 3:33 PM CELLULAR BIOLOGIST) Anatomical Region Laterality Modality Upper Extremities, Upper Arm Left Com puted Radiography 06/19/2024 5:19 PM CELLULAR BIOLOGIST Impressions 06/19/2024 6:21 PM CELLULAR BIOLOGIST Left humerus: Left humerus intramedullary nail and [...] Yue Palafox M.D. Narrative 06/19/2024 6:21 PM CELLULAR BIOLOGIST EXAMINATION: XR ELBOW LEFT 2 VIEWS, XR [...] Elbow Left 2 Views (06/19/2024 3:32 PM CELLULAR BIOLOGIST) Anatomical Region Laterality Modality Upper Extremities, Elbow Left Compute d Radiography 06/19/2024 5:19 PM CELLULAR BIOLOGIST Impressions 06/19/2024 6:21 PM CELLULAR BIOLOGIST Left humerus: Left humerus intramedullary nail and [...] Yue Palafox M.D. Narrative 06/19/2024 6:21 PM CELLULAR BIOLOGIST EXAMINATION: XR ELBOW LEFT 2 VIEWS, XR [...] inferior aspect of the knee. Dictated by: Kushanth Mallikarjun, M.D. The radiology attending physician has personally reviewed this study, and had reviewed and/or edited this written report and agrees with it. Electronically signed by: Yue Palafox M.D. us Umesh Chavez MD IMG XR PROCEDURES Final Resu lt * Surgical pathology (06/06/2024 12:26 PM CELLULAR BIOLOGIST) Polyp(s), colon/colorectal , esophageal, gastric 06/06/2024 12:26 PM CELLULAR BIOLOGIST 06/06/2024 2:44 PM CELLULAR BIOLOGIST Narrative 06/07/2024 11:39 PM CELLULAR BIOLOGIST EPIC results best viewed via link to PDF [facility] [place] [address] Note to Patients: This report may contain [...] Gender: ??F : ??1955 (Age: 69) Address: ??[address] [place] [address] ??[id number] Hospital #: ??[id number] Taken:06/06/2024 Received:06/06/2024 Reported: 06/07/2024 Patient Type: [facility] [...] evidence of high grade dysplasia or malignancy [facility]/06/07/2024 23:39 By this signature, I attest [...] greatest dimension. ?? Labeled B1. Jar 0. [facility]/06/06/2024 16:57 PA(s): Katharina Lewis By this signature, I attest that the above diagnosis is based upon my personal examination of the slides(and/or other material). Addenda/Procedures The performance characteristics of some immunohistochemical stains, fluorescence in-situ hybridization tests and immunophenotyping by flow cytometry cited in this report (if any) were determined by the Surgical Pathology and Flow Cytometry Departments at [facility] as part of an ongoing cloth tester quality program and in compliance with federally mandated [...] Surgical Pathology and Flow Cytometry Departments of [facility]. ??It has not been cleared or approved by the U. S. Food and Drug Administration. IMAGES AND SCANNED DOCUMENTS, IF INCLUDED, ONLY VIEWABLE IN PDF VERSION OF REPORT us Elio Gresham MD LAB PATHOLOGY ORDERABLES Final Result * Colonoscopy (06/06/2024 12:04 PM CELLULAR BIOLOGIST) Anatomical Region Laterality Modality Other Narrative Procedure Note Elio Gresham MD - 06/06/2024 12:04 PM [facility] Patient Name: Marcella Vallejo Procedure Date: 06/06/2024 12:04PM Date of : 1955 Admit Type: Outpatient Age: 69 Gender: Female Attending MD: Elio Gresham M.D. 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 Providers: Elio [...] The scope was passed under direct vision.The PCF H190L [id number] endoscope was introduced through the anus and advanced to 5 cm into the ileum. The colonoscopy was performed without difficulty. The patient tolerated the procedure well. The qualityof the bowel preparation was good. The quality of the bowel preparation was evaluated using the BBPS(Tarzan Bowel Preparation Scale) with scores of: RightColon [...] DEVICE CHECK - REMOTE (06/02/2024 3:49 PM CELLULAR BIOLOGIST) Anatomical Region Laterality Modality Other 06/02/2024 3:49 PM CELLULAR BIOLOGIST Narrative 06/12/2024 3:07 PM CELLULAR BIOLOGIST Interpretation Summary: Battery and Leads (BL) Normal parameters noted on battery and lead(s) --- 31 months (6 to 55 months) remaining longevity (implanted 2012). ? Threshold and RV impedance trends stable and appropriate. ?? RA impedance trend shows variable measurements, recently stable in the 1000s. Presenting Rhythm (AL) Atrial Pacing-Ventricular Sensing (AP-VS) --- AP/VS ?? [...] recently stable in the 1000s. Presenting Rhythm (AL) Atrial Pacing-Ventricular Sensing (AP-VS) --- AP/VS 74 [...] Thang Emery MD PhD CV CARDIAC SERVICES AL OCEDURES Final Result * Screening Mammogram Bilateral W Sukhdev (10/11/2023 11:29 AM CDT) Anatomical Region Laterality Modality Breast Bilateral Mammography Narrative 10/12/2023 4:05 PM CDT Mammogram Technique: Bilateral Digital Breast Tomosynthesis, Bilateral C-view 2D Screening mammogram. ??Views obtained: ??bilateral craniocaudal and bilateral mediolateral oblique. ??Computer Aided Detection was performed. Mammogram Findings: The present examination has been compared to prior imaging studies performed at [facility] on 10/07/2020, 10/08/2021 and 10/09/2022. The [...] compared to prior imaging studies performed at [facility] on 10/07/2020, 10/08/2021 and 10/09/2022. The [...] CDT) Hep C Ab Nonreactive Nonreactive KRISTI MCNAMARA Comment:Antibodies to HCV no t detected. Does NOT exclude the possibility of recent exposure to HCV. Current interpretive data was last revised on 22 Blood 03/01/2023 12:1 5 PM CDT 03/01/2023 12:58 PM CDT us Notinfile Unknown LAB MICROBIOLOGY - GENERAL ORD ERABLES Final Result [facility] [place] [address] * Dexa Axial and Forearm Bone Density Scan (09/10/2021 10:28 AM CELLULAR BIOLOGIST) Anatomical Region Laterality Modality Wrist, Body N/A Radiographic Sunni ging Narrative 09/10/2021 10:40 AM CELLULAR BIOLOGIST Patient Name: Marcella Vallejo Date of : 1955 Date of scan: 09/10/2021 Bone mineral density was performed on a [employer] Discovery Densitometer. ?? Based on machine cross-calibration [...] mineral density scan were prepared by Demetria MCGREGOR(Eun) who is accredited by the International Society of Clinical Densitometry. The overall patient assessment and scan interpretation were performed by Lillie Chang M.D. who is certified by the International Society of Clinical Densitometry. [id number] us Vickie Pickens MD IMGhislaine DXA PROCEDURES Final Resu lt from Last 3 Months or Most Recently Relevant to Health Maintenance Insurance MEDICARE MEDICARE [facility] MEDICARE [facility] MEDICARE [facility] MEDICARE Advance Directives For more information, please contact: [phone] * Full Code (Latest Code Status on [...] 10:36 AM 07/29/2021 5:12 PM Care Teams Boring Machine Set Up Operator Relationship Specialty Start Date End Date Giacomo Wong MD [address] [place] [address] PCP - General 09/02/16 Lexi [place] MD [address] [place] [address] Consulting Physician Medical Oncology 08/26/20 Terra Andre MD PhD [id number] [facility] [address] [place] [address] Consulting Physician Medical Oncology 03/30/23
== END 2024-08-17 11:52 | disposition home or self-care (01) ==
PROVIDERS: PCP Family Medicine Adolescent Medicine; Visit Provider Family Medicine
DX: M79.89 Other specified soft tissue disorders (principal)
CPT/HCPCS: 93971

== ENCOUNTER 2024-11-08 07:28 | Outpatient (RCR) | payer MEDICARE, SELFPAY ==
[2024-08-23 10:19] VITALS: BMI 41.9
== END 2024-11-21 23:59 | disposition home or self-care (01) ==
LOC: ANHWOC 07:28
PROVIDERS: PCP Family Medicine Adolescent Medicine; Visit Provider Family Medicine
DX: Z48.00 Encounter for change or removal of nonsurgical wound dressing (principal); S81.009A Unspecified open wound, unspecified knee, initial encounter
CPT/HCPCS: 99213; 99214; A9270; G0463